=== PATIENT | female | born 1965 | race Caucasian/White ===

== ENCOUNTER 2016-10-14 08:57 | Emergency (ER) | payer SELFPAY ==
[~2016-10-14] VITALS: Ht 177.8 cm; Wt 68.0 kg
[~2016-10-14 08:57] MED LIST: DICL75 PO
[2016-10-14 08:59] VITALS: BP 119/63; PULSE 87; RESP 16; TEMP 98.9; O2SAT 98
--- NOTE | 2016-10-14 09:11 | PD ---
HPI Chief Complaint: Skin Problem Time Seen by Provider: 09:09 Travel History International Travel<30 days: No Contact w/Intl Traveler<30days: No Traveled to known affect area: No History of Present Illness HPI 51-year-old female presents the emergency department with questionable abscess on the right distal lateral dorsal forearm for the past 2 days. Patient has a history of IV drug use. Patient also complaining of burning with urination for the past several days. Patient states she's had fever although in triage her temperature is normal. She has mild pain to the right forearm cellulitic area, but no other constitutional symptoms. She has no numbness, tingling, or loss of function of the right arm. She denies any spontaneous drainage from this area. Patient has no known drug allergies. PFSH Past Medical History ?: Not Social History Alcohol Use: No Tobacco Use: Yes Substance Use: No Allergies-Medications (Allergen,Severity, Reaction): Coded Allergies: No Known Allergies (Unverified , 10/14/16) Reported Meds & Prescriptions Reported Meds & Active Scripts Active Reported Excedrin Migraine Caplet (Aspirin/Acetaminophen/Caffeine) 1 Each Tablet Methadone (Methadone HCl) 40 Mg Tab 40 Mg PO DAILY Review of Systems Except as stated in HPI: all other systems reviewed are Neg General / Constitutional: Positive: Fever Eyes: No: Visual changes HENT: No: Headaches Cardiovascular: No: Chest Pain or Discomfort Respiratory: No: Shortness of Breath Gastrointestinal: No: Abdominal Pain Genitourinary: Positive: Dysuria Musculoskeletal: No: Pain Skin: Positive Lesions, No Rash Neurologic: No: Weakness Psychiatric: No: Depression Endocrine: No: Polydipsia Hematologic/Lymphatic: No: Easy Bruising Physical Exam Narrative GENERAL: Patient appears no acute distress. SKIN: Warm and dry. Normal color. Normal turgor. Patient has a walnut-sized erythematous raised tender indurated area to the right distal dorsal lateral forearm consistent with abscess from IV drug use. There is no pointing or streaking. HEAD: Atraumatic. Normocephalic. EYES: Pupils equal and round. No scleral icterus. No injection or drainage. ENT: No nasal bleeding or discharge. Mucous membranes pink and moist. NECK: Trachea midline. Supple nontender. CARDIOVASCULAR: Regular rate and rhythm. RESPIRATORY: No accessory muscle use. Clear to auscultation. Breath sounds equal bilaterally. GASTROINTESTINAL: Abdomen soft, non-tender, nondistended. Hepatic and splenic margins not palpable. No CVA tenderness. MUSCULOSKELETAL: Extremities without clubbing, cyanosis, or edema. No obvious deformities. NEUROLOGICAL: Awake and alert. No obvious cranial nerve deficits. Motor grossly within normal limits. Five out of 5 muscle strength in the arms and legs. Normal speech. PSYCHIATRIC: Appropriate mood and affect; insight and judgment normal. Data Data Last Documented VS Vital Signs Date Time Temp Pulse Resp B/P Pulse Ox O2 Delivery O2 Flow Rate FiO2 10/14/16 08:59 98.9 87 16 119/63 98 Orders Urinalysis - C+S If Indicated (10/14/16 09:09) Lidocai-Epi 1%-1:100,000 Inj (Xylocaine- (10/14/16 09:15) Lidocai-Epi 1%-1:100,000 Inj (Xylocaine- (10/14/16 09:19) Urine Culture (10/14/16 09:22) Labs Laboratory Tests Test 10/14/16 09:22 Urine Color YELLOW Urine Turbidity HAZY Urine pH 6.5 Urine Specific [place] 1.016 Urine Protein 30 mg/dL Urine Glucose (UA) NEG mg/dL Urine Ketones NEG mg/dL Urine Occult Blood SMALL Urine Nitrite NEG Urine Bilirubin NEG Urine Urobilinogen LESS THAN 2.0 MG/DL Urine Leukocyte Esterase LARGE Urine RBC 7 /hpf Urine WBC 169 /hpf Urine WBC Clumps FEW Urine Squamous Epithelial 35 /hpf Cells Urine Bacteria FEW /hpf Urine Mucus FEW /lpf Microscopic Urinalysis Comment CULTURE INDICATED MDM Medical Decision Making Medical Screen Exam Complete: Yes Emergency Medical Condition: Yes Medical Record Reviewed: Yes Differential Diagnosis IV drug use. Urinary tract infection. Cellulitis. Abscess. MRSA. Narrative Course Patient is medically stable at time of exam. Urinalysis is collected and sent to the lab. I&D of the abscess of the right arm is performed. Wound cultures sent to the lab. Urinalysis suggestive of urinary tract infection. Patient will be treated with Bactrim DS twice a day 7 days. Patient also given Keflex 500 mg 3 times a day 7 days. Patient is to return in 2 days for a packing removal and wound check. Patient take Tylenol or ibuprofen as needed for pain. Patient is referred to Darron Tay for her drug issues. Patient can return sooner if symptoms worsen as needed. Procedures Procedure Narrative After the risks and benefits were discussed the following procedure was performed: INCISION AND DRAINAGE OF ABSCESS: The area was prepped and was sterilely draped. A subcutaneous wheal of 1% Xylocaine with epi with a total number 2 mL was used to anesthetize the area. The area was properly anesthetized. A number 11 scalpel was used to make a 1-cm incision across the area of the abscess. Cultures were obtained. The abscess was drained an irrigated with normal saline. Quarter inch iodoform packing was placed in the wound. Sterile dressing applied. Patient advised to have packing removed in two days. Diagnosis Primary Impression: Abscess Additional Impression: Urinary tract infection Qualified Code: N30.00 - Acute cystitis without hematuria Patient Instructions: Abscess Incision and Drainage (ED), Dysuria (ED), General Instructions, MRSA (Methicillin Resistant Staphylococcus Aureus) (ED), Narcotic Abuse (ED) Additional Instructions: Urinalysis suggestive of urinary tract infection. Patient will be treated with Bactrim DS twice a day 7 days. Patient also given Keflex 500 mg 3 times a day 7 days. Patient is to return in 2 days for a packing removal and wound check. Patient take Tylenol or ibuprofen as needed for pain. Patient is referred to Darron Tay for her drug issues. Patient can return sooner if symptoms worsen as needed. Med/Other Pt SpecificInfo: Prescription(s) given Disposition: 01 DISCHARGE HOME Condition: Stable Basim Stout Oct 14, 2016 09:11
[2016-10-14] MEDS ORDERED: LIDOCAINE 1%/EPINEPHrine 1:100,000 SOLN 20 ML VIAL INFIL ONE (09:15)
[2016-10-14] MEDS ORDERED: LIDOCAINE 1%/EPINEPHrine 1:100,000 SOLN 30 ML VIAL ONE (09:19)
[2016-10-14 09:48] LABS: BACTERIA, URINE FEW /hpf; BLOOD, URINE SMALL (NEG); COMMENT (UR) CULTURE INDICATED; CULTURE IF INDICATED CULTURE INDICATED; GLUCOSE,URINE NEG (NEG); KETONE, URINE NEG (NEG); MUCUS URINE FEW /lpf (OCC); NITRITE,URINE NEG (NEG); PH, URINE 6.5 (5.0-8.5); SQUAMOUS EPITHELIAL CELL URINE 35 /hpf (0-5); URINE COLOR YELLOW (YELLW/STRAW)
[2016-10-14] MEDS ORDERED: METH40TA PO (09:55)
[2016-10-14] MEDS ORDERED: EXCETAB30 (09:55)
[2016-10-14] MEDS ORDERED: CEPH500C PO (10:03)
[2016-10-14] MEDS ORDERED: BACT800T5 PO (10:03)
== END 2016-10-14 10:32 | disposition home or self-care (01) ==
LOC: NEPK 08:57
DX: L02.413 Cutaneous abscess of right upper limb (principal); N30.00 Acute cystitis without hematuria; B95.61 Methicillin susceptible Staphylococcus aureus infection as the cause of diseases classified elsewhere; B96.4 Proteus (mirabilis) (morganii) as the cause of diseases classified elsewhere; Z72.0 Tobacco use
CPT/HCPCS: 10061; 81001; 86403; 87070; 87077; 87086; 87186

== ENCOUNTER 2017-06-13 05:40 | Inpatient (IN) | payer SELFPAY ==
[~2017-06-13] VITALS: Ht 176.5 cm; Wt 83.8 kg
[~2017-06-13 05:40] MED LIST changes: +BACT800T5 PO; +CEPH500C PO; -DICL75 PO; +EXCETAB31; +METH40TA PO
[2017-06-13 05:42] VITALS: BP 132/71; PULSE 81; RESP 16; TEMP 99.4; O2SAT 98
--- NOTE | 2017-06-13 06:39 | PD ---
HPI Chief Complaint: Lump, Cyst, Hernia Time Seen by Provider: 05:58 Travel History International Travel<30 days: No Contact w/Intl Traveler<30days: No Traveled to known affect area: No History of Present Illness HPI The patient is a 52 year old female who presents to the [facility] emergency department with a history of left-sided neck swelling that she reports began 4-5 days ago. She reports that it began approximately 1-2 days after she injected cocaine in the left side of her neck. She reports that she relapsed with using IV drugs this past week. She reports that she had been clean and sober for a year prior to this. She denies having any known history of hepatitis C or HIV. She cannot recall when she was last checked for this. She reports that she has had problems with skin infections in the past related to IV drug use. She denies having any known fevers. She denies having any difficulty swallowing or shortness of breath. She reports that the swelling in the left side of her neck has increased with time. She reports that the pain has become so severe over the last 24 hours that she cannot sleep. Review of systems on review of systems, the patient denies having any cough, congestion, chest pain, shortness of breath, abdominal pain, vomiting, diarrhea, urinary symptoms, or neurologic symptoms. The patient reports having a headache. She reports having nausea without vomiting. The patient's last menstrual cycle was last week. [facility] Past Medical History Narrative Medical The patient's past medical history is significant for IV drug use, history of skin infections related to IV drug use in the past. Arthritis: Yes Migraines: Yes ?: Not Tubal Ligation: Yes Past Surgical History Narrative Surgical The patient's past surgical history is significant for bilateral tubal ligation , breast augmentation, low back surgery 3. Neurologic Surgery: Yes (Disectomy and laminectomy X3) Other Surgery: Yes (BREAST AUGMENTATION) Social History Alcohol Use: No Tobacco Use: Yes (a half a pack per day) Substance Use: Yes (Cocaine and marijuana) Allergies-Medications (Allergen,Severity, Reaction): Coded Allergies: No Known Allergies (Unverified Adverse Reaction, Unknown, 06/13/17) Reported Meds & Prescriptions Reported Meds & Active Scripts Active Review of Systems Except as stated in HPI: all other systems reviewed are Neg General / Constitutional: No: Fever Eyes: No: Visual changes HENT: Positive: Headaches, Neck Pain, No: Rhinorrhea, Congestion, Neck Stiffness Cardiovascular: No: Chest Pain or Discomfort Respiratory: No: Cough, Shortness of Breath Gastrointestinal: Positive: Nausea, No: Vomiting, Diarrhea, Abdominal Pain, Changes in Bowel Habits, Indigestion, Loss of Appetite Genitourinary: No: Dysuria Musculoskeletal: No: Pain Skin: No Rash Neurologic: No: Weakness, Focal Abnormalities, Change in Mentation, Slurred Speech, Sensory Disturbance Psychiatric: No: Depression Endocrine: No: Polydipsia Hematologic/Lymphatic: No: Easy Bruising Physical Exam Narrative General: The patient is a well-developed well-nourished female in no acute distress. Head and Neck exam: Head is normocephalic atraumatic. Eyes: EOMI, pupils are equal round and reactive to light. Nose: Midline septum with pink mucous membranes Mouth: Dentition unremarkable. Moist mucus membranes. Posterior oropharynx is not erythematous. No tonsillar hypertrophy. Uvula midline. Airway patent. Neck: No spinous process tenderness to palpation. No step-off or crepitus. No erythema or ecchymosis. No nuchal rigidity. No thyromegaly. On palpation the patient on the left side of her neck in the anterior cervical chain has a 5 x 6 cm area of induration without any focal fluctuance. No overlying erythema or edema. The patient reports that she has discomfort that radiates down into the left supraclavicular area. Cardiovascular: Regular rate and rhythm without murmurs, gallops, or rubs. Lungs: Clear to auscultation bilaterally. No wheezes, rhonchi, or rales. Abdomen: Soft, without tenderness to palpation in all 4 quadrants of the abdomen. No guarding, rebound, or rigidity. Normal bowel sounds are audible. No tenderness on palpation of McBurney's point. Extremities: No clubbing, cyanosis, or edema. 2+ pulses in all 4 extremities. No calf tenderness on palpation. Back: No costovertebral angle tenderness to palpation. Neurologic Exam: Grossly nonfocal. Skin Exam: No rash noted. Intact skin that is warm and dry. Data Data Last Documented VS Vital Signs Date Time Temp Pulse Resp B/P (MAP) Pulse Ox O2 Delivery O2 Flow Rate FiO2 06/13/17 05:42 99.4 81 16 132/71 (91) 98 Room Air Orders Orders Electrocardiogram (06/13/17 06:23) Complete Blood Count With Diff (06/13/17 06:23) Comprehensive Metabolic Panel (06/13/17:23) Prothrombin Time / Inr (Pt) (06/13/17:23) Act Partial Throm Time (Ptt) (06/13/17 06:23) Blood Culture (06/13/17:23) C-Reactive Protein (Crp) (06/13/17:23) Magnesium (Mg) (06/13/17:23) Chest, Single Ap (06/13/17:23) Ct Brain W/O Iv Contrast(Rout) (06/13/17:23) Iv Access Insert/Monitor (06/13/17:23) Ecg Monitoring (06/13/17:23) Oximetry (06/13/17:23) Ed Urine Pregnancytest Poc (06/13/17:23) Lactic Acid Sepsis Protocol (06/13/17:23) Ct Soft Tiss Neck W Iv Cont (06/13/17 06:27) MDM Medical Decision Making Medical Screen Exam Complete: Yes Emergency Medical Condition: Yes Medical Record Reviewed: Yes Differential Diagnosis Lymphadenitis, versus lymphadenopathy, versus abscess, versus myositis Narrative Course During the course of the patients emergency department visit, the patients history, examination, and differential diagnosis were reviewed with the patient. The patient was placed on a security monitor with oximetry and frequent blood pressure monitoring. The patient had IV access obtained and blood work sent for analysis. A CT scan of the head was ordered given the patient's reports of headache, CT scan of the neck with IV contrast was ordered to further evaluate the left sided neck mass. The patient was initially provided normal saline a 1 L IV fluid bolus, Zosyn, vancomycin were administered IV. Blood cultures 2 were drawn prior to antibiotic administration along with a lactic acid. The patients laboratory studies and imaging studies are pending at the conclusion of my shift. The patient's case will be checked out to the oncoming emergency physician to disposition the patient based on the conclusion of her workup. Diagnosis Primary Impression: Mass of left side of neck Additional Impression: IV drug user Ree Richardson MD Jun 13, 2017 06:39
--- NOTE | 2017-06-13 06:42 | RADRPT ---
EXAM DATE/TIME: 06/13/2017 06:31 [facility] COMPARISON: No previous studies available for comparison. INDICATIONS : Pain to left side of neck beginning this morning MEDICAL HISTORY : None. SURGICAL HISTORY : Tubal ligation. Discectomy, laminectomy, Breast Augmentation ENCOUNTER: Initial ACUITY: 1 day PAIN SCORE: 8/10 LOCATION: Bilateral chest FINDINGS: A single view of the chest demonstrates the lungs to be symmetrically aerated without evidence of mas s, infiltrate or effusion. Minimal basilar atelectasis. The cardiomediastinal contours are unremarkab le. Osseous structures are intact. CONCLUSION: 1. Minimal basilar atelectasis. No effusion or pneumothorax. Richard Fry MD on June 13, 2017 at 6:40 Board Certified Radiologist. This report was verified electronically.
[2017-06-13] MEDS ORDERED: SODIUM CHLOR 0.9% 1000 ML INJ 1,000 ML IV ONE (07:00)
[2017-06-13] MEDS ORDERED: PIPERACIL-TAZO 3.375 GM PREMIX 50 ML IV ONE (07:00)
[2017-06-13] MEDS ORDERED: VANCOMYCIN 1 GM/200 ML INJ 200 ML IV ONE (07:00)
[2017-06-13] MEDS ORDERED: MORPHINE SULFATE 4 MG/ML INJ IV PUSH ONE (08:15)
[2017-06-13 08:17] LABS: AUTOMATED NEUTROPHIL # 7.6 TH/MM3 (1.8-7.7); BASOPHIL % 0.2 % (0.0-2.0); EOSINOPHIL # 0.2 TH/MM3 (0-0.4); EOSINOPHIL % 1.8 % (0.0-4.0); HEMATOCRIT 34.4 % (35.0-46.0); HEMOGLOBIN 12.4 GM/DL (11.6-15.3); LYMPH % 16.3 % (9.0-44.0); LYMPHOCYTE # 1.7 TH/MM3 (1.0-4.8); MEAN CELL VOLUME 89.9 FL (80.0-100.0); MEAN CORPUSCULAR HEMOGLOBIN 32.4 PG (27.0-34.0); MEAN PLATELET VOLUME 7.9 FL (7.0-11.0); MONO % 7.7 % (0.0-8.0); MONOCYTE # 0.8 TH/MM3 (0-0.9); PLATELET COUNT 245 TH/MM3 (150-450); RED BLOOD COUNT 3.82 MIL/MM3 (4.00-5.30); RED CELL DISTRIBUTION WIDTH 12.7 % (11.6-17.2); WHITE BLOOD COUNT 10.3 TH/MM3 (4.0-11.0)
[2017-06-13 08:28] LABS: INTERNATIONAL NORMALIZED RATIO 1.1 RATIO; PROTHROMBIN TIME - PATIENT 10.7 SEC (9.8-11.6)
[2017-06-13 08:37] LABS: ALBUMIN 3.9 GM/DL (3.4-5.0); ALT (GPT) 27 U/L (10-53); AST (GOT) 12 U/L (15-37); BICARBONATE 25.3 MEQ/L (21.0-32.0); BLOOD UREA NITROGEN 17 MG/DL (7-18); CALCIUM 9.2 MG/DL (8.5-10.1); CHLORIDE 104 MEQ/L (98-107); GLOMERULAR FILTRATION RATE 59 ML/MIN (>89); GLUCOSE,RANDOM 83 MG/DL (74-106); MAGNESIUM 1.9 MG/DL (1.5-2.5); SODIUM (NA) 135 MEQ/L (136-145)
[2017-06-13 08:40] LABS: ALKALINE PHOSPHATASE 61 U/L (45-117); TOTAL BILIRUBIN ADULT 0.4 MG/DL (0.2-1.0); TOTAL PROTEIN 8.3 GM/DL (6.4-8.2)
[2017-06-13 08:50] VITALS: BP 126/60; PULSE 69; RESP 16; O2SAT 98
[2017-06-13] MEDS ORDERED: IOHEXOL 350 MG/ML 10 ML VIAL (for RAD DIAG) IVCONTRAST ONE (09:03)
--- NOTE | 2017-06-13 09:07 | RADRPT ---
EXAM DATE/TIME: 06/13/2017 08:56 [facility] COMPARISON: No previous studies available for comparison. INDICATIONS : Headache RADIATION DOSE: 36.65 CTDIvol (mGy) MEDICAL HISTORY : None SURGICAL HISTORY : Fusion, lumbar. ENCOUNTER: Initial ACUITY: 4 - 6 days PAIN SCALE: 6/10 LOCATION: cranial TECHNIQUE: Multiple contiguous axial images were obtained of the head. Using automated exposure control and adj ustment of the mA and/or kV according to patient size, radiation dose was kept as low as reasonably a chievable to obtain optimal diagnostic quality images. DICOM format image data is available electro nically for review and comparison. FINDINGS: CEREBRUM: The ventricles are normal for age. No evidence of midline shift, mass lesion, hemorrhage or acute in farction. No extra-axial fluid collections are seen. POSTERIOR FOSSA: The cerebellum and brainstem are intact. The 4th ventricle is midline. The cerebellopontine angle i s unremarkable. EXTRACRANIAL: The visualized portion of the orbits is intact. SKULL: The calvaria is intact. No evidence of skull fracture. CONCLUSION: No acute intracranial disease. Arjun Espinosa MD on June 13, 2017 at 9:04 Board Certified Radiologist. This report was verified electronically.
--- NOTE | 2017-06-13 09:16 | RADRPT ---
EXAM DATE/TIME: 06/13/2017 08:56 [facility] COMPARISON: No previous studies available for comparison. INDICATIONS : Left sided neck swelling IV CONTRAST: 68 cc Omnipaque 350 (iohexol) IV RADIATION DOSE: 17.35 CTDIvol (mGy) MEDICAL HISTORY : None SURGICAL HISTORY : Fusion, lumbar. ENCOUNTER: Initial ACUITY: 4 - 6 days PAIN SCALE: 5/10 LOCATION: Left neck TECHNIQUE: Volumetric scanning of the neck was performed. Using automated exposure control and adjustment of th e mA and/or kV according to patient size, radiation dose was kept as low as reasonably achievable to obtain optimal diagnostic quality images. DICOM format image data is available electronically for r eview and comparison. FINDINGS: NASOPHARYNX: The nasopharyngeal airway has a normal configuration. No mucosal thickening or mass is seen. OROPHARYNX: The intrinsic muscles of the tongue are symmetric. The tonsillar pillars are intact. The prevertebr al soft tissues are not thickened. LARYNX: The supraglottic, glottic, and infraglottic structures are intact. PARAPHARYNGEAL: The parapharyngeal space is intact. SALIVARY GLANDS: The parotid and submandibular glands are intact. LYMPH NODES: No enlarged or necrotic-appearing nodes. THYROID: Homogeneous enhancement without evidence of nodule. BONES: Unremarkable. OTHER: Soft tissue thickening and swelling of the left neck. There is engorgement of the left sternocleidoma stoid musculature. On the lateral peripheral aspect is a small area of low-density and probable small microabscess measuring 1.3 x 1.1 cm. Mucous retention cyst within the right maxillary sinus. CONCLUSION: 1. Diffuse soft tissue swelling of the left neck with engorgement of the left sternocleidomastoid mus culature. Small area of low-density along the periphery of the muscle measuring 1.1 x 1.3 cm consiste nt with microabscess. This is too small to percutaneously drain. Arjun Espinosa MD on June 13, 2017 at 9:08 Board Certified Radiologist. This report was verified electronically.
--- NOTE | 2017-06-13 09:52 | PD ---
Physical Exam Narrative Patient signed out to me by Dr. Richardson. Please see her documentation for complete details. Briefly, patient is a 52 year old female who comes in complaining of pain and swelling to the left side of her neck. She says it has been there for about 5 days, ever since she injected drugs into the area. She says it has been getting worse and more swollen. Exam shows a large, tender mass to the left side of the neck. There is no fluctuance or drainage. Data Data Last Documented VS Vital Signs Date Time Temp Pulse Resp B/P (MAP) Pulse Ox O2 Delivery O2 Flow Rate FiO2 06/13/17 08:50 69 16 126/60 (82) 98 Room Air 06/13/17 05:42 99.4 Orders Orders Electrocardiogram (06/13/17 06:23) Complete Blood Count With Diff (06/13/17 06:23) Comprehensive Metabolic Panel (06/13/17 06:23) Prothrombin Time / Inr (Pt) (06/13/17 06:23) Act Partial Throm Time (Ptt) (06/13/17 06:23) Blood Culture (06/13/17 06:23) C-Reactive Protein (Crp) (06/13/17 06:23) Magnesium (Mg) (06/13/17 06:23) Chest, Single Ap (06/13/17 06:23) Ct Brain W/O Iv Contrast(Rout) (06/13/17 06:23) Iv Access Insert/Monitor (06/13/17 06:23) Ecg Monitoring (06/13/17 06:23) Oximetry (06/13/17 06:23) Ed Urine Pregnancytest Poc (06/13/17 06:23) Lactic Acid Sepsis Protocol (06/13/17 06:23) Ct Soft Tiss Neck W Iv Cont (06/13/17 06:27) Sodium Chlor 0.9% 1000 Ml Inj (Ns 1000 M (06/13/17 07:00) Piperacil-Tazo 3.375 Gm Premix (Zosyn 3. (06/13/17 07:00) Vancomycin Inj (Vancomycin Inj) (06/13/17 07:00) Vascular Access Team Consult/P PRN (06/13/17 06:57) Vascular Poc Ultrasound (06/13/17 ) Morphine Inj (Morphine Inj) (06/13/17 08:15) Iohexol 350 Inj (Omnipaque 350 Inj) (06/13/17 09:03) Labs Laboratory Tests Test 06/13/17 08:00 White Blood Count 10.3 TH/MM3 Red Blood Count 3.82 MIL/MM3 Hemoglobin 12.4 GM/DL Hematocrit 34.4 % Mean Corpuscular Volume 89.9 FL Mean Corpuscular Hemoglobin 32.4 PG Mean Corpuscular Hemoglobin Concent 36.0 % Red Cell Distribution Width 12.7 % Platelet Count 245 TH/MM3 Mean Platelet Volume 7.9 FL Neutrophils (%) (Auto) 74.0 % Lymphocytes (%) (Auto) 16.3 % Monocytes (%) (Auto) 7.7 % Eosinophils (%) (Auto) 1.8 % Basophils (%) (Auto) 0.2 % Neutrophils # (Auto) 7.6 TH/MM3 Lymphocytes # (Auto) 1.7 TH/MM3 Monocytes # (Auto) 0.8 TH/MM3 Eosinophils # (Auto) 0.2 TH/MM3 Basophils # (Auto) 0.0 TH/MM3 CBC Comment AUTO DIFF Differential Comment AUTO DIFF CONFIRMED Prothrombin Time 10.7 SEC Prothromb Time International Ratio 1.1 RATIO Activated Partial Thromboplast Time 26.1 SEC Blood Urea Nitrogen 17 MG/DL Creatinine 1.00 MG/DL Random Glucose 83 MG/DL Total Protein 8.3 GM/DL Albumin 3.9 GM/DL Calcium Level 9.2 MG/DL Magnesium Level 1.9 MG/DL Alkaline Phosphatase 61 U/L Aspartate Amino Transf (AST/SGOT) 12 U/L Alanine Aminotransferase (ALT/SGPT) 27 U/L Total Bilirubin 0.4 MG/DL Sodium Level 135 MEQ/L Potassium Level 3.8 MEQ/L Chloride Level 104 MEQ/L Carbon Dioxide Level 25.3 MEQ/L Anion Gap 6 MEQ/L Estimat Glomerular Filtration Rate 59 ML/MIN Lactic Acid Level 0.7 mmol/L C-Reactive Protein 1.80 MG/DL [facility] Supervised Visit with GEETA: No Differential Diagnosis cellulitis vs abscess vs mass Narrative Course Patient is a 52 year old female who comes in complaining of pain and swelling to the left side of her neck. Exam shows a large tender mass. CT performed shows swelling of the sternocleidomastoid muscle and microabscess. Last [address] 06/13/17 0715 Signed Impressions: Service Date/Time: Tuesday, June 13, 2017 08:56 - CONCLUSION: 1. Diffuse soft tissue swelling of the left neck with engorgement of the left sternocleidomastoid musculature. Small area of low-density along the periphery of the muscle measuring 1.1 x 1.3 cm consistent with microabscess. This is too small to percutaneously drain. Arjun Espinosa MD Head CT 06/13/17622 Signed Impressions: Service Date/Time: Tuesday, June 13, 2017 08:56 - CONCLUSION: No acute intracranial disease. Arjun Espinosa MD Chest X-Ray 06/13/17622 Signed Impressions: Service Date/Time: Tuesday, June 13, 2017 06:31 - CONCLUSION: 1. Minimal basilar atelectasis. No effusion or pneumothorax. Richard Fry MD She was given Zosyn, Vancomycin and Morphine for pain. She will be admitted for extensive infection to her neck muscle. Diagnosis Primary Impression: Cellulitis, neck Additional Impressions: Abscess IV drug abuse Admitting Information Admitting Physician Requests: Geeta Thurman MD Jun 13, 2017 09:52
[2017-06-13] MEDS ORDERED: Vancomycin Consult Pharmacy 1 EA OTHER PRN (10:00)
[2017-06-13 11:00] VITALS: BP 113/56; PULSE 73; RESP 19; O2SAT 98
[2017-06-13] MEDS: PIPERACIL-TAZO 3.375 GM PREMIX 50 ML IV SCH ×2 (14:13→20:47)
[2017-06-13 14:56] VITALS: BP 116/66
[2017-06-13] MEDS ORDERED: NAPROXEN 500 MG TAB PO PRN (17:00)
--- NOTE | 2017-06-13 17:25 | HHI.HP ---
[facility] No Primary Care Physician Admission Diagnosis 52-year-old white female admitted for neck abscess. Diagnoses: Chief Complaint: Neck pain Travel History International Travel<30 Days: No Contact w/Intl Traveler <30 Da: No Traveled to Known Affected Are: No History of Present Illness 52-year-old white female being admitted for cellulitis and sternocleidomastoid abscess. Patient states she was in her usual state of health until about 4 days ago when she injected herself into her left neck with a dirty needle attempting to get high. Following that she began developing pain near the site of injection and this was associated with progressive swelling of the left side of her neck to the point where the pain became intolerable with a 9 out of 10. She took some ibuprofen and [place] and something from her boyfriend which she cannot specify - none of these provided any avail. She denies any nausea, vomiting, fevers, chills. No difficulty eating or voice changes. Case discussed with the emergency room physician. She reports she recently "relapsed" in terms of IV drug use due to a in the family. She says it has been many years before that when she sees IV drugs and denies ever being diagnosed with endocarditis. Review of Systems Except as stated in HPI: all other systems reviewed are Neg Past Family Social History Allergies: Coded Allergies: No Known Allergies (Unverified Allergy, Unknown, 06/13/17) Family History Patient does report her mother having some sort of neck cancer but cannot specify exactly where and what type Social History IV drug use Physical Exam Vital Signs Vital Signs Date Time Temp Pulse Resp B/P (MAP) Pulse Ox O2 Delivery O2 Flow Rate FiO2 06/13/17 14:56 74 18 116/66 (83) 97 06/13/17 11:00 73 19 113/56 (75) 98 Room Air 06/13/17 08:50 69 16 126/60 (82) 98 Room Air 06/13/17 05:42 99.4 81 16 132/71 (91) 98 Room Air Physical Exam VS: afebrile GENERAL: Lying in bed, mild distress secondary to pain, well-nourished female SKIN: Warm and dry. EYES: No scleral icterus. No injection or drainage. ENT: No nasal bleeding or discharge. Has impressive golf ball-sized edema on the left side of her neck with tenderness in that region and some erythema. The tenderness extends all the way up to the preauricular area. Patient does not demonstrate any trismus and no voice changes. CARDIOVASCULAR: Regular rate and rhythm. no murmurs RESPIRATORY: No accessory muscle use. Clear to auscultation. Breath sounds equal bilaterally. GASTROINTESTINAL: Abdomen soft, non-tender, nondistended. Extremities: No clubbing, cyanosis, or edema. No obvious deformities. MUSCULOSKELETAL: grossly intact ROM with 5/5 strength in upper and lower extremities proximally; adequate muscle bulk and tone for age and habitus NEUROLOGICAL: Awake and alert. No obvious cranial nerve deficits. No facial droop nor slurred speech noted. PSYCHIATRIC: Appropriate mood and affect; insight and judgment normal. Laboratory Laboratory Tests Test 06/13/17 08:00 White Blood Count 10.3 Red Blood Count 3.82 Hemoglobin 12.4 Hematocrit 34.4 Mean Corpuscular Volume 89.9 Mean Corpuscular Hemoglobin 32.4 Mean Corpuscular Hemoglobin Concent 36.0 Red Cell Distribution Width 12.7 Platelet Count 245 Mean Platelet Volume 7.9 Neutrophils (%) (Auto) 74.0 Lymphocytes (%) (Auto) 16.3 Monocytes (%) (Auto) 7.7 Eosinophils (%) (Auto) 1.8 Basophils (%) (Auto) 0.2 Neutrophils # (Auto) 7.6 Lymphocytes # (Auto) 1.7 Monocytes # (Auto) 0.8 Eosinophils # (Auto) 0.2 Basophils # (Auto) 0.0 CBC Comment AUTO DIFF Differential Comment AUTO DIFF CONFIRMED Prothrombin Time 10.7 Prothromb Time International Ratio 1.1 Activated Partial Thromboplast Time 26.1 Blood Urea Nitrogen 17 Creatinine 1.00 Random Glucose 83 Total Protein 8.3 Albumin 3.9 Calcium Level 9.2 Magnesium Level 1.9 Alkaline Phosphatase 61 Aspartate Amino Transf (AST/SGOT) 12 Alanine Aminotransferase (ALT/SGPT) 27 Total Bilirubin 0.4 Sodium Level 135 Potassium Level 3.8 Chloride Level 104 Carbon Dioxide Level 25.3 Anion Gap 6 Estimat Glomerular Filtration Rate 59 Lactic Acid Level 0.7 C-Reactive Protein 1.80 Date/Time Source Procedure Growth Status 06/13/17 08:00 Blood Peripheral Aerobic Blood Culture Pending Received 06/13/17 08:00 Blood Peripheral Anaerobic Blood Culture Pending Received Result Diagram: 06/13/17 0800 06/13/17 08 Imaging Last Impressions Neck CT 06/13/17626 Signed Impressions: Service Date/Time: Tuesday, June 13, 2017 08:56 - CONCLUSION: 1. Diffuse soft tissue swelling of the left neck with engorgement of the left sternocleidomastoid musculature. Small area of low-density along the periphery of the muscle measuring 1.1 x 1.3 cm consistent with microabscess. This is too small to percutaneously drain. Arjun Espinosa MD Head CT 06/13/17622 Signed Impressions: Service Date/Time: Tuesday, June 13, 2017 08:56 - CONCLUSION: No acute intracranial disease. Arjun Espinosa MD Chest X-Ray 06/13/17622 Signed Impressions: Service Date/Time: Tuesday, June 13, 2017 06:31 - CONCLUSION: 1. Minimal basilar atelectasis. No effusion or pneumothorax. Richard Fry MD Caprini VTE Risk Assessment Caprini VTE Risk Assessment: Mod/High Risk (score >= 2) Caprini Risk Assessment Model Point Value = 1 Point Value = 2 Point Value = 3 Point Value = 5 Age 41-60 Minor surgery BMI > 25 kg/m2 Swollen legs Varicose veins or History of unexplained or recurrent spontaneous Oral contraceptives or hormone replacement Sepsis (< 1 month) Serious lung disease, including pneumonia (< 1 month) Abnormal pulmonary function Acute myocardial infarction Congestive heart failure (< 1 month) History of inflammatory bowel disease Medical patient at bed rest Age 61-74 Arthroscopic surgery Major open surgery (> 45 min) Laparoscopic surgery (> 45 min) Malignancy Confined to bed (> 72 hours) Immobilizing plaster cast Central venous access Age >= 75 History of VTE Family history of VTE Factor V Leiden Prothrombin [id number] Lupus anticoagulant Anticardiolipin antibodies Elevated serum homocysteine Heparin-induced thrombocytopenia Other congenital or acquired thrombophilia Stroke (< 1 month) Elective arthroplasty Hip, pelvis, or leg fracture Acute spinal cord injury (< 1 month) Prophylaxis Regimen Total Risk Factor Score Risk Level Prophylaxis Regimen 0-1 Low Early ambulation 2 Moderate Order ONE of the following: *Sequential Compression Device (SCD) *Heparin 5000 units SQ BID 3-4 Higher Order ONE of the following medications: *Heparin 5000 units SQ TID *Enoxaparin/Lovenox 40 mg SQ daily (WT < 150 kg, CrCl > 30 mL/min) *Enoxaparin/Lovenox 30 mg SQ daily (WT < 150 kg, CrCl > 10-29 mL/min) *Enoxaparin/Lovenox 30 mg SQ BID (WT < 150 kg, CrCl > 30 mL/min) AND/OR *Sequential Compression Device (SCD) 5 or more Highest Order ONE of the following medications: *Heparin 5000 units SQ TID (Preferred with Epidurals) *Enoxaparin/Lovenox 40 mg SQ daily (WT < 150 kg, CrCl > 30 mL/min) *Enoxaparin/Lovenox 30 mg SQ daily (WT < 150 kg, CrCl > 10-29 mL/min) *Enoxaparin/Lovenox 30 mg SQ BID (WT < 150 kg, CrCl > 30 mL/min) AND *Sequential Compression Device (SCD) Assessment and Plan Assessment and Plan 52-year-old white female being admitted for cellulitis and sternocleidomastoid abscess SCM abscess - Risk inoculating infection of MRSA into the deeper soft tissues and musculature, risk of nec fasc present. Case discussed with ENT who will come see the patient. I independently reviewed the CT neck and I see substantial sternocleidomastoid swelling w/ the abscess pocket pointed out. Blood cultures have been ordered. I will start broad-spectrum antibiotics. - IVFs - IV pain med, monitor respiratory status. tobacco use - pt denying patch at this time SCDs; possible surg intervention, holding off on lovenox Physician Certification 2 Midnight Certification Type: Admission for Inpatient Services Order for Inpatient Services The services are ordered in accordance with Medicare regulations or non- Medicare payer requirements, as applicable. In the case of services not specified as inpatient-only, they are appropriately provided as inpatient services in accordance with the 2-midnight benchmark. Estimated LOS (days): 3 3 days is the estimated time the patient will need to remain in the hospital, assuming treatment plan goals are met and no additional complications. Post-Hospital Plan: Not yet determined Slim Bolden MD Jun 13, 2017 17:25
[2017-06-13 18:00] VITALS: BP 129/74; PULSE 75; RESP 14; TEMP 99.2; O2SAT 99
[2017-06-13] MEDS ORDERED: MORPHINE SULFATE 2 MG/ML INJ IV PUSH PRN (18:00)
--- NOTE | 2017-06-13 18:54 | EKG ---
Date Performed: 06/13/2017 Time Performed: 07:08:39 PTAGE: 52 years EKG: Sinus rhythm NORMAL ECG NO PREVIOUS TRACING DOCTOR: Pablo Anderson Interpretating Date/Time 06/13/2017 18:52:23
[2017-06-13 20:00] VITALS: BP 122/74; PULSE 74; RESP 18; TEMP 98.3; O2SAT 96
[2017-06-13] MEDS: ACETAMINOPHEN/HYDROcodone 325 MG/10 MG TAB PO PRN (20:48)
[2017-06-14] VITALS: BP 114/58; PULSE 66; RESP 18; TEMP 98.4; O2SAT 97
[2017-06-14] MEDS: PIPERACIL-TAZO 3.375 GM PREMIX 50 ML IV SCH ×4 (02:56→21:08)
[2017-06-14] MEDS: ACETAMINOPHEN/HYDROcodone 325 MG/10 MG TAB PO PRN ×4 (02:57→21:09)
[2017-06-14] MEDS: VANCOMYCIN INJ 1,250 MG in SODIUM CHLOR 0.9% 250 ML INJ 250 ML IV SCH ×2 (03:11→21:09)
[2017-06-14 04:00] VITALS: BP 118/62; PULSE 68; RESP 18; TEMP 98.5; O2SAT 96
[2017-06-14 08:00] VITALS: BP 121/56; PULSE 70; RESP 16; TEMP 99.2; O2SAT 96
--- NOTE | 2017-06-14 08:44 | HHI.PR ---
Subjective Remarks Pt states that pain is controlled w pain meds. admits to nausea but no vomiting. No fevers or chills at this time. Discussed w RN, pt is requesting that pain med frequency be increased to q4hrs Objective Vitals Vital Signs Date Time Temp Pulse Resp B/P (MAP) Pulse Ox O2 Delivery O2 Flow Rate FiO2 06/14/17 04:00 98.5 68 18 118/62 (80) 96 06/14/17 00:00 98.4 66 18 114/58 (76) 97 06/13/17 20:00 98.3 74 18 122/74 (90) 96 06/13/17 18:00 99.2 75 14 129/74 (92) 99 06/13/17 14:56 74 18 116/66 (83) 97 06/13/17 11:00 73 19 113/56 (75) 98 Room Air 06/13/17 08:50 69 16 126/60 (82) 98 Room Air I/O 06/13/17 06/13/17 06/13/17 06/14/17 06/14/17 06/14/17 07:00 15:00 23:00 07:00 15:00 23:00 Intake Total 1350 ml 50 ml 940 ml Balance 1350 ml 50 ml 940 ml Intake Oral 640 ml IV Total 1350 ml 50 ml 300 ml # Voids 1 3 # Bowel Movements 0 0 Result Diagram: 06/13/17 0800 06/13/17 0800 Imaging Last Impressions Neck CT 06/13/17626 Signed Impressions: Service Date/Time: Tuesday, June 13, 2017 08:56 - CONCLUSION: 1. Diffuse soft tissue swelling of the left neck with engorgement of the left sternocleidomastoid musculature. Small area of low-density along the periphery of the muscle measuring 1.1 x 1.3 cm consistent with microabscess. This is too small to percutaneously drain. Arjun Espinosa MD Head CT 06/13/17622 Signed Impressions: Service Date/Time: Tuesday, June 13, 2017 08:56 - CONCLUSION: No acute intracranial disease. Arjun Espinosa MD Chest X-Ray 06/13/17622 Signed Impressions: Service Date/Time: Tuesday, June 13, 2017 06:31 - CONCLUSION: 1. Minimal basilar atelectasis. No effusion or pneumothorax. Richard Fry MD Objective Remarks GENERAL: sitting up in bed. ENT: golf ball-sized edema on the left side of her neck with tenderness in that region and some erythema. The tenderness extends all the way up to the preauricular area. Patient does not demonstrate any voice changes. CARDIOVASCULAR: Regular rate and rhythm. no murmurs RESPIRATORY: No accessory muscle use. Clear to auscultation. Breath sounds equal bilaterally. GASTROINTESTINAL: Abdomen soft, non-tender, nondistended. Extremities: No edema. No obvious deformities. MUSCULOSKELETAL: moves all extremities NEUROLOGICAL: Awake and alert.No facial droop nor slurred speech noted. A/P Assessment and Plan 52-year-old white female being admitted for cellulitis and sternocleidomastoid abscess SCM abscess - Risk inoculating infection of MRSA into the deeper soft tissues and musculature, risk of nec fasc present. ENT consult in place. CT neck shows engorgement of the sternocleidomastoid musculature. Blood cultures pending. on IV vanc and zosyn. afebrile thus far - IVFs - IV pain med, monitor respiratory status. tobacco use - pt denying patch at this time SCDs; possible surg intervention, holding off on lovenox Discharge Planning Awaiting for ENT consult. Regina Chun MD Jun 14, 2017 08:44
[2017-06-14 12:00] VITALS: BP 118/70; PULSE 64; RESP 16; TEMP 98.8; O2SAT 98
[2017-06-14 16:00] VITALS: BP 120/71; PULSE 71; RESP 14; TEMP 97; O2SAT 99
[2017-06-14 20:00] VITALS: BP 163/80; PULSE 96; RESP 20; TEMP 96.1; O2SAT 93
[2017-06-15] VITALS: BP 120/62; PULSE 68; RESP 18; TEMP 97.4; O2SAT 99
[2017-06-15] MEDS: PIPERACIL-TAZO 3.375 GM PREMIX 50 ML IV SCH ×4 (02:31→20:39)
[2017-06-15] MEDS: ACETAMINOPHEN/HYDROcodone 325 MG/10 MG TAB PO PRN ×4 (03:35→20:39)
[2017-06-15 06:49] LABS: CREATININE 0.87 MG/DL (0.50-1.00)
--- NOTE | 2017-06-15 08:50 | HHI.PR ---
Subjective Remarks Pain still present, would like to get pain meds q4-6hr instead of q6hrs. no nausea or vomiting. no diarrhea. no cp/sob Tells me that ENT told her that they would like her to continue IV abx and if by tuesday no improvement she will need sx. Report not yet available. Objective Vitals Vital Signs Date Time Temp Pulse Resp B/P (MAP) Pulse Ox O2 Delivery O2 Flow Rate FiO2 06/15/17 00:00 97.4 68 18 120/62 (81) 99 06/14/17 20:00 96.1 96 20 163/80 (107) 93 06/14/17 16:00 97.0 71 14 120/71 (87) 99 06/14/17 12:00 98.8 64 16 118/70 (86) 98 I/O 06/14/17 06/14/17 06/14/17 06/15/17 06/15/17 06/15/17 07:00 15:00 23:00 07:00 15:00 23:00 Intake Total 940 ml 408 ml 290 ml 1020 ml Balance 940 ml 408 ml 290 ml 1020 ml Intake Oral 640 ml 358 ml 240 ml 720 ml IV Total 300 ml 50 ml 50 ml 300 ml # Voids 3 6 3 # Bowel Movements 0 1 0 Result Diagram: 06/13/17 0800 06/15/17 0450 Imaging Last Impressions Neck CT 06/13/17626 Signed Impressions: Service Date/Time: Tuesday, June 13, 2017 08:56 - CONCLUSION: 1. Diffuse soft tissue swelling of the left neck with engorgement of the left sternocleidomastoid musculature. Small area of low-density along the periphery of the muscle measuring 1.1 x 1.3 cm consistent with microabscess. This is too small to percutaneously drain. Arjun Espinosa MD Head CT 06/13/17622 Signed Impressions: Service Date/Time: Tuesday, June 13, 2017 08:56 - CONCLUSION: No acute intracranial disease. Arjun Espinosa MD Chest X-Ray 06/13/17622 Signed Impressions: Service Date/Time: Tuesday, June 13, 2017 06:31 - CONCLUSION: 1. Minimal basilar atelectasis. No effusion or pneumothorax. Richard Fry MD Objective Remarks GENERAL: sitting up in bed. ENT: golf ball-sized edema on the left side of her neck with tenderness in that region and erythema seems to have diminished. The tenderness extends all the way up to the preauricular area. Patient does not demonstrate any voice changes. CARDIOVASCULAR: Regular rate and rhythm. no murmurs RESPIRATORY: No accessory muscle use. Clear to auscultation. Breath sounds equal bilaterally. GASTROINTESTINAL: Abdomen soft, non-tender, nondistended. Extremities: No edema. No obvious deformities. MUSCULOSKELETAL: moves all extremities NEUROLOGICAL: Awake and alert.No facial droop nor slurred speech noted. A/P Assessment and Plan 52-year-old white female being admitted for cellulitis and sternocleidomastoid abscess SCM abscess - Risk inoculating infection of MRSA into the deeper soft tissues and musculature. ENT consult in place. Official report not yet available. CT neck shows engorgement of the sternocleidomastoid musculature. Blood cultures so far neg x 1 day. on IV vanc and zosyn. afebrile thus far - IVFs - continue pain meds. switch norco to q4hrs as needed as pt is very tender tobacco use - pt denying patch at this time SCDs; possible surg intervention, holding off on lovenox Discharge Planning continue IV abx for now. Awaiting report from ENT. Per pt, possible surgical intervention on tuesday Regina Chun MD Jun 15, 2017 08:50
[2017-06-15 10:10] VITALS: BP 107/59; PULSE 68; RESP 14; TEMP 97; O2SAT 100
[2017-06-15 12:00] VITALS: BP 125/67; PULSE 73; RESP 14; TEMP 97.2; O2SAT 100
[2017-06-15] MEDS: VANCOMYCIN INJ 1,250 MG in SODIUM CHLOR 0.9% 250 ML INJ 250 ML IV SCH (14:15)
[2017-06-15 16:00] VITALS: BP 124/76; PULSE 62; RESP 14; TEMP 97.7; O2SAT 100
[2017-06-15 20:00] VITALS: BP 118/86; PULSE 69; RESP 20; TEMP 98.3; O2SAT 100
[2017-06-16] VITALS: BP 122/79; PULSE 61; RESP 20; TEMP 98.1; O2SAT 97
[2017-06-16] MEDS: PIPERACIL-TAZO 3.375 GM PREMIX 50 ML IV SCH ×3 (02:26→14:00)
[2017-06-16] MEDS: ACETAMINOPHEN/HYDROcodone 325 MG/10 MG TAB PO PRN ×3 (02:29→11:16)
[2017-06-16 04:37] VITALS: RESP 20
[2017-06-16 06:46] LABS: BICARBONATE 23.4 MEQ/L (21.0-32.0); CALCIUM 8.6 MG/DL (8.5-10.1)
[2017-06-16 06:50] LABS: CREATININE 0.86 MG/DL (0.50-1.00)
[2017-06-16] MEDS ORDERED: PHARMACY ORDERED LAB ONE (07:45)
[2017-06-16 08:00] VITALS: BP 115/58; PULSE 57; RESP 16; TEMP 97.1; O2SAT 97
[2017-06-16] MEDS: VANCOMYCIN INJ 1,250 MG in SODIUM CHLOR 0.9% 250 ML INJ 250 ML IV SCH (08:57)
[2017-06-16 12:00] VITALS: BP 121/82; PULSE 65; RESP 16; TEMP 97.9; O2SAT 100
[2017-06-16 12:17] VITALS: RESP 18
--- NOTE | 2017-06-16 13:20 | HHI.PR ---
Subjective Remarks Patient examined today for follow-up on left neck abscess from IV drug abuse. Patient is sitting in bed quite comfortable. Denies any worsening pain. Discussed with her plan for care with awaiting ENT recommendations for possible surgical incision and drainage. Patient remained stable, afebrile. Objective Vital Signs Date Time Temp Pulse Resp B/P (MAP) Pulse Ox O2 Delivery O2 Flow Rate FiO2 06/16/17 12:17 18 06/16/17 12:00 97.9 65 16 121/82 (95) 100 06/16/17 08:00 97.1 57 16 115/58 (77) 97 06/16/17 04:37 20 06/16/17 00:00 98.1 61 20 122/79 (93) 97 06/15/17 20:00 98.3 69 20 118/86 (97) 100 06/15/17 16:00 97.7 62 14 124/76 (92) 100 I/O 06/15/17 06/15/17 06/15/17 06/16/17 06/16/17 06/16/17 07:00 15:00 23:00 07:00 15:00 23:00 Intake Total 1020 ml 480 ml 470 ml 290 ml Balance 1020 ml 480 ml 470 ml 290 ml Intake Oral 720 ml 480 ml 420 ml 240 ml IV Total 300 ml 50 ml 50 ml # Voids 3 6 3 # Bowel Movements 0 1 0 Result Diagram: 06/13/17 0800 06/16/17 0510 Imaging Last Impressions Neck CT 06/13/17626 Signed Impressions: Service Date/Time: Tuesday, June 13, 2017 08:56 - CONCLUSION: 1. Diffuse soft tissue swelling of the left neck with engorgement of the left sternocleidomastoid musculature. Small area of low-density along the periphery of the muscle measuring 1.1 x 1.3 cm consistent with microabscess. This is too small to percutaneously drain. Arjun Espinosa MD Head CT 06/13/17622 Signed Impressions: Service Date/Time: Tuesday, June 13, 2017 08:56 - CONCLUSION: No acute intracranial disease. Arjun Espinosa MD Chest X-Ray 06/13/17622 Signed Impressions: Service Date/Time: Tuesday, June 13, 2017 06:31 - CONCLUSION: 1. Minimal basilar atelectasis. No effusion or pneumothorax. Richard Fry MD Objective Remarks GENERAL: Well-developed, well-nourished, in no acute distress. alert and orientated HEENT: Head is normocephalic without any lesions or masses noted. Facial features are symmetric. Eyes: extraocular muscles are intact. Conjunctivae were clear. NECK: Supple without any masses. Trachea midline no deviation. No JVD, patient still has significant granulated area noted over the mid left sternoclavicular muscle CARDIAC: Regular rhythm, regular rate. S1/S2 are heard. No murmurs gallops or rubs. LUNGS: Clear to auscultation bilaterally. No wheeze, rhonchi or rales. No use of accessory muscles on inspiration or expiration. ABDOMEN: Soft, nontender. Nondistended. Bowel sounds heard in all 4 quadrants. No organomegaly or masses. Negative rebound, negative guarding EXTREMITIES: No edema, pulses are equal bilaterally. No cyanosis or clubbing NEUROLOGY: Mood and affect appear appropriate. Cranial nerves II through XII grossly intact. Moving all extremities, speech is clear A/P Assessment and Plan 52-year-old female who was admitted for cellulitis and abscess of the sternocleidomastoid abscess Sternocleidomastoid abscess, without any signs of sepsis Risk concerning for MRSA secondary to IV drug use ENT physician evaluated patient and recommended 48-72 hours of IV antibiotic and reevaluation to see if surgical intervention is necessary, awaiting reevaluation Blood cultures have remained negative for 3 days, patient remains afebrile Pain control with [place] IV drug use patient counseled on cessation Tobacco use Patient counseled on cessation DVT prevention sequential compression devices, avoid chemical prophylaxis secondary to possible surgical intervention Discharge Planning Discharge planning once cleared by ENT Vinayak Crystal Jun 16, 2017 13:20
[2017-06-16] MEDS ORDERED: BACT800T5 PO (15:07)
[2017-06-16] MEDS ORDERED: CLIN150C14 PO (15:07)
--- NOTE | 2017-06-16 15:08 | HHI.DCPOC ---
Discharge Care Plan Diagnosis: (1) Cellulitis, neck (2) IV drug user Goals to Promote Your Health * To prevent worsening of your condition and complications * To maintain your health at the optimal level Directions to Meet Your Goals Take your medications as prescribed Follow your dietary instruction Follow activity as directed Keep your appointments as scheduled Take your immunizations and boosters as scheduled If your symptoms worsen call your PCP, if no PCP go to Urgent Care Center or Emergency Room Smoking is Dangerous to Your Health. Avoid second hand smoke Call the 24-hour hour crisis hotline for domestic abuse at Vinayak Crystal Jun 16, 2017 15:08
--- NOTE | 2017-06-16 15:14 | HHI.DS ---
Discharge Summary Admission Date Jun 14, 2017 at 10:39 Discharge Date: Jun 16, 2017 Admitting Diagnosis 52-year-old white female admitted for neck abscess. (1) Cellulitis, neck ICD Code: L03.221 - Cellulitis of neck Status: Acute (2) IV drug user ICD Code: F19.90 - Other psychoactive substance use, unspecified, uncomplicated Status: Acute Procedures None Brief History - From Admission 52-year-old white female being admitted for cellulitis and sternocleidomastoid abscess. Patient states she was in her usual state of health until about 4 days ago when she injected herself into her left neck with a dirty needle attempting to get high. Following that she began developing pain near the site of injection and this was associated with progressive swelling of the left side of her neck to the point where the pain became intolerable with a 9 out of 10. She took some ibuprofen and [place] and something from her boyfriend which she cannot specify - none of these provided any avail. She denies any nausea, vomiting, fevers, chills. No difficulty eating or voice changes. Case discussed with the emergency room physician. She reports she recently "relapsed" in terms of IV drug use due to a in the family. She says it has been many years before that when she sees IV drugs and denies ever being diagnosed with endocarditis. CBC/BMP: 06/13/17 0800 06/16/17 0510 Significant Findings Laboratory Tests Test 06/15/17 04:50 06/16/17 05:10 Estimat Glomerular Filtration Rate 69 ML/MIN (>89) 70 ML/MIN (>89) Chloride Level 108 MEQ/L (98-107) Imaging Last Impressions Neck CT 06/13/17 0648 Signed Impressions: Service Date/Time: Tuesday, June 13, 2017 08:56 - CONCLUSION: 1. Diffuse soft tissue swelling of the left neck with engorgement of the left sternocleidomastoid musculature. Small area of low-density along the periphery of the muscle measuring 1.1 x 1.3 cm consistent with microabscess. This is too small to percutaneously drain. Arjun F. Tocci, MD Head CT 06/13/17622 Signed Impressions: Service Date/Time: Tuesday, June 13, 2017 08:56 - CONCLUSION: No acute intracranial disease. Arjun Espinosa MD Chest X-Ray 06/13/17622 Signed Impressions: Service Date/Time: Tuesday, June 13, 2017 06:31 - CONCLUSION: 1. Minimal basilar atelectasis. No effusion or pneumothorax. Richard Fry MD PE at Discharge GENERAL: sitting up in bed. ENT: golf ball-sized edema on the left side of her neck with tenderness in that region and erythema seems to have diminished. The tenderness extends all the way up to the preauricular area. Patient does not demonstrate any voice changes. CARDIOVASCULAR: Regular rate and rhythm. no murmurs RESPIRATORY: No accessory muscle use. Clear to auscultation. Breath sounds equal bilaterally. GASTROINTESTINAL: Abdomen soft, non-tender, nondistended. Extremities: No edema. No obvious deformities. MUSCULOSKELETAL: moves all extremities NEUROLOGICAL: Awake and alert.No facial droop nor slurred speech noted. Hospital Course 52-year-old female with known history of IV drug use who actually using and injected into the left side of her neck developed pain and inflammation in the area of injection present in 4 days prior to preventing to the hospital. Patient had workup done emergency department and there is no indication of any fever, leukocytosis, tachycardia, any signs of sepsis. CT scan was done of the neck which did show engorgement of the left sternocleidomastoid musculature. Small area of low density along the periphery measuring 1.1 x 1.3 cm consistent with a microabscess. Patient was admitted the hospital with empirical antibiotics to include vancomycin, Zosyn. ENT, Dr. Elam, evaluated patient and at the time there is no indication for any surgical intervention with grossly cellulitis, inflammation. Is recommended patient maintain on IV antibiotics for 48-72 hours and reevaluate. There is been no significant clinical worsening. The area still does have some mild erythema, edema. There is no fluctuance noted on palpation. No obvious need for incision and drainage at this time. This was discussed with the ENT physician. Indicates patient can maintain on by mouth antibiotics and follow- up in his office in 2 days for follow-up. Patient did have workup performed with blood cultures which have remained negative during her stay in the hospital. Patient never developed any fever. Patient clinically stable and improving at this time. Will discharge patient home on by mouth antibiotics with outpatient follow-up with the ENT. Patient notified if she develops any worsening she should return the hospital for further evaluation and management. Pt Condition on Discharge: Stable Discharge Disposition: Discharge Home Discharge Time: > 30 minutes Discharge Instructions DIET: Follow Instructions for: As Tolerated, No Restrictions Activities you can perform: Regular-No Restrictions Activities to Avoid: Driving for 24 hrs Follow up Referrals: Ear Nose Throat - 2-[address] Elam PCP Follow-up - 1 Week New Medications: Clindamycin (Clindamycin) 150 Mg Cap 450 MG PO Q6H for Infection for 10 Days, #120 CAP 0 Refills Sulfamethoxazole-Trimethoprim (Bactrim DS) 800-160 Mg Tab 1 TAB PO BID for Infection, #20 TAB 0 Refills Vinayak Crystal Jun 16, 2017 15:14
[2017-06-16] MEDS ORDERED: VANCOMYCIN INJ 1,250 MG in SODIUM CHLOR 0.9% 250 ML INJ 250 ML IV SCH (18:00)
[2017-06-18] MEDS ORDERED: PHARMACY ORDERED LAB ONE (05:45)
== END 2017-06-16 16:10 | disposition home or self-care (01) | DRG 558 ==
LOC: NEPC 05:40 → NEDA 09:55 → PH3A 15:52 → OBSVTOIN 06-14 10:39
PROVIDERS: ADMIT Hospitalist; ATTEND Hospitalist
DX: M60.08 Infective myositis, other site (principal); L03.221 Cellulitis of neck; F19.10 Other psychoactive substance abuse, uncomplicated; Z72.0 Tobacco use
CPT/HCPCS: 70450; 70491; 71045; 80048; 80053; 80202; 82565; 83605; 83735; 84703; 85025; 85610; 85730; 86140; 87040; 93005; 96365; 96366; 96368; 96375; 96376; G0378; J2270; J2543; J3370; J7030; J7050; Q9967

== ENCOUNTER 2017-08-11 03:49 | Inpatient (IN) | payer SELFPAY ==
[~2017-08-11] VITALS: Ht 175.3 cm; Wt 81.7 kg
[2017-08-11] VITALS (7 sets, daily range): BP systolic 133–177; BP diastolic 67–92; PULSE 58–96; RESP 15–17; TEMP 98.1–99.2; O2SAT 97–100
[~2017-08-11 03:49] MED LIST changes: -CEPH500C PO; +CLIN150C14 PO; -EXCETAB31; -METH40TA PO
[2017-08-11] MEDS ORDERED: SODIUM CHLOR 0.9% 1000 ML INJ 1,000 ML IV ONE (07:30)
[2017-08-11] MEDS ORDERED: VANCOMYCIN INJ 1,000 MG in SODIUM CHLOR 0.9% 250 ML INJ 250 ML IV STA (07:35)
[2017-08-11] MEDS ORDERED: PIPERACIL-TAZO 4.5 GM PREMIX 100 ML IV STA (07:35)
--- NOTE | 2017-08-11 07:52 | RADRPT ---
EXAM DATE/TIME: 08/11/2017 07:41 [facility] COMPARISON: CHEST SINGLE AP, June 13, 2017, 6:31. INDICATIONS : Lump on left neck. MEDICAL HISTORY : Arthritis. SURGICAL HISTORY : Tubal ligation. Laminectomy. Breast augmentation. ENCOUNTER: Initial ACUITY: 1 day PAIN SCORE: 0/10 LOCATION: Bilateral chest FINDINGS: A single view of the chest demonstrates the lungs to be symmetrically aerated without evidence of mas s, infiltrate or effusion. The cardiomediastinal contours are unremarkable. Osseous structures are intact. CONCLUSION: No acute disease. Rock Aaron MD on August 11, 2017 at 7:50 Board Certified Radiologist. This report was verified electronically.
--- NOTE | 2017-08-11 08:09 | PD ---
HPI Chief Complaint: Skin Problem Time Seen by Provider: 07:30 Travel History International Travel<30 days: No Contact w/Intl Traveler<30days: No Traveled to known affect area: No History of Present Illness HPI 52 y/o female presents with swelling to her left neck and difficulty swallowing that restarted over the past couple of days. She states she was discharged from the hospital at the end of June and she only took about half the course of her antibiotics. She states she did not follow up with anyone. She denies injecting in that area or anywhere else since being in the hospital. Quality is swollen. Severity is progressive. Duration is 2 days. Patient denies specific modifying factors other than with swallowing. She states the antibiotic she was supposed to be on with clindamycin. PFSH Past Medical History Arthritis: Yes Blood Disorders: No Cancer: No Cardiovascular Problems: No Diminished Hearing: No Endocrine: No Genitourinary: No Musculoskeletal: Yes (3 back surgerys ) Neurologic: No Psychiatric: No Respiratory: No Migraines: Yes Tetanus Vaccination: Unknown Influenza Vaccination: No ?: Not LMP: menapause Tubal Ligation: Yes Past Surgical History Neurologic Surgery: Yes (Disectomy and laminectomy X3) Other Surgery: Yes (BREAST AUGMENTATION) Social History Alcohol Use: Yes (daily) Tobacco Use: Yes (a half a pack per day) Substance Use: Yes (Cocaine and marijuana) Allergies-Medications (Allergen,Severity, Reaction): Coded Allergies: No Known Allergies (Unverified Allergy, Unknown, 08/11/17) Reported Meds & Prescriptions Reported Meds & Active Scripts Active Review of Systems Except as stated in HPI: all other systems reviewed are Neg Physical Exam Narrative GENERAL: 52-year-old female in no apparent distress SKIN: To left mid lateral neck there is a large area of swelling that is indurated and has overlying erythema and warmth with abscess-like appearance that does not cross into the midline or back of neck HEAD: Atraumatic. Normocephalic. EYES: Pupils equal and round. No scleral icterus. No injection or drainage. ENT: No nasal bleeding or discharge. Mucous membranes pink and moist. NECK: Trachea midline. No JVD. CARDIOVASCULAR: Regular rate and rhythm. RESPIRATORY: No accessory muscle use. Clear to auscultation. Breath sounds equal bilaterally. GASTROINTESTINAL: Abdomen soft, non-tender, nondistended. MUSCULOSKELETAL: No obvious deformities. No clubbing. No cyanosis. No edema. NEUROLOGICAL: Awake and alert. Motor grossly within normal limits. Normal speech. Data Data Last Documented VS Vital Signs Date Time Temp Pulse Resp B/P (MAP) Pulse Ox O2 Delivery O2 Flow Rate FiO2 08/11/17 11:06 72 16 133/78 (96) 99 Room Air 08/11/17 07:15 99.2 Orders Orders Complete Blood Count With Diff (08/11/17 07:28) Comprehensive Metabolic Panel (08/11/17 07:28) Prothrombin Time / Inr (Pt) (08/11/17 07:28) Act Partial Throm Time (Ptt) (08/11/17 07:28) Lactic Acid Sepsis Protocol (08/11/17 07:28) Magnesium (Mg) (08/11/17 07:28) Urinalysis - C+S If Indicated (08/11/17 07:28) Blood Culture (08/11/17 07:28) Chest, Single Ap (08/11/17 07:28) Ecg Monitoring (08/11/17 07:28) Iv Access Insert/Monitor (08/11/17 07:28) Oximetry (08/11/17 07:28) Ct Soft Tiss Neck W Iv Cont (08/11/17 ) Sodium Chlor 0.9% 1000 Ml Inj (Ns 1000 M (08/11/17 07:30) Drug Screen, Random Urine (08/11/17 07:28) Piperacil-Tazo 4.5 Gm Premix (Zosyn 4.5 (08/11/17 07:35) Vancomycin Inj (Vancomycin Inj) (08/11/17 07:35) Urine Culture (08/11/17 08:13) Iohexol 350 Inj (Omnipaque 350 Inj) (08/11/17 10:49) Admit Order (Ed Use Only) (08/11/17 11:55) Labs Laboratory Tests Test 08/11/17 07:55 08/11/17 08:00 08/11/17 08:13 08/11/17 09:45 White Blood Count 7.0 TH/MM3 Red Blood Count 4.06 MIL/MM3 Hemoglobin 12.1 GM/DL Hematocrit 36.3 % Mean Corpuscular Volume 89.5 FL Mean Corpuscular Hemoglobin 29.7 PG Mean Corpuscular Hemoglobin Concent 33.2 % Red Cell Distribution Width 14.4 % Platelet Count 207 TH/MM3 Mean Platelet Volume 8.7 FL Neutrophils (%) (Auto) 71.1 % Lymphocytes (%) (Auto) 19.2 % Monocytes (%) (Auto) 8.3 % Eosinophils (%) (Auto) 0.6 % Basophils (%) (Auto) 0.8 % Neutrophils # (Auto) 4.9 TH/MM3 Lymphocytes # (Auto) 1.3 TH/MM3 Monocytes # (Auto) 0.6 TH/MM3 Eosinophils # (Auto) 0.0 TH/MM3 Basophils # (Auto) 0.1 TH/MM3 CBC Comment DIFF FINAL Differential Comment Prothrombin Time 10.5 SEC Prothromb Time International Ratio 1.0 RATIO Activated Partial Thromboplast Time 25.2 SEC Lactic Acid Level 1.2 mmol/L Urine Color YELLOW Urine Turbidity HAZY Urine pH 7.0 Urine Specific [place] 1.022 Urine Protein 30 mg/dL Urine Glucose (UA) NEG mg/dL Urine Ketones TRACE mg/dL Urine Occult Blood NEG Urine Nitrite NEG Urine Bilirubin NEG Urine Urobilinogen 2.0 MG/DL Urine Leukocyte Esterase SMALL Urine RBC 1 /hpf Urine WBC 2 /hpf Urine Squamous Epithelial Cells 31 /hpf Urine Transitional Epithelial Cells <1 /hpf Urine Bacteria RARE /hpf Urine Mucus FEW /lpf Microscopic Urinalysis Comment CATH-CULTURE IND Urine Opiates Screen NEG Urine Barbiturates Screen NEG Urine Amphetamines Screen NEG Urine Benzodiazepines Screen NEG Urine Cocaine Screen NEG Urine Cannabinoids Screen NEG Blood Urea Nitrogen 13 MG/DL Creatinine 0.98 MG/DL Random Glucose 130 MG/DL Total Protein 8.5 GM/DL Albumin 3.9 GM/DL Calcium Level 9.3 MG/DL Magnesium Level 1.7 MG/DL Alkaline Phosphatase 88 U/L Aspartate Amino Transf (AST/SGOT) 46 U/L Alanine Aminotransferase (ALT/SGPT) 83 U/L Total Bilirubin 0.5 MG/DL Sodium Level 140 MEQ/L Potassium Level 3.4 MEQ/L Chloride Level 105 MEQ/L Carbon Dioxide Level 26.9 MEQ/L Anion Gap 8 MEQ/L Estimat Glomerular Filtration Rate 60 ML/MIN MDM Medical Decision Making Medical Screen Exam Complete: Yes Emergency Medical Condition: Yes Medical Record Reviewed: Yes (Past history confirmed) Interpretation(s) CBC & BMP Diagram 08/11/17 07:55 08/11/17 09:45 Total Protein 8.5 H, Albumin 3.9, Calcium Level 9.3, Magnesium Level 1.7, Alkaline Phosphatase 88, Aspartate Amino Transf (AST/SGOT) 46 H, Alanine Aminotransferase (ALT/SGPT) 83 H, Total Bilirubin 0.5 Last 24 hours Impressions Chest X-Ray 08/11/17 0728 Signed Impressions: Service Date/Time: July 07:41 - CONCLUSION: No acute disease. Rock Aaron MD Neck CT 08/11/17 0000 Signed Impressions: Service Date/Time: July 10:43 - CONCLUSION: Superficial cellulitic and deep soft tissue process in the left neck which is presumably inflammatory as described in detail above. Raf Shi MD Differential Diagnosis Abscess, cellulitis, sepsis, endocarditis Narrative Course Will check blood work, CT imaging and dose with broad-spectrum antibiotic coverage and reevaluate CT shows more cellulitic component with a small possible fluid collection. She will be admitted for continued IV antibiotic therapy and continued care, if does not improve she may need incision and drainage Physician Communication Physician Communication dr gtz agrees to admission Diagnosis Primary Impression: Cellulitis of neck Additional Impression: IVDU (intravenous drug user) Admitting Information Admitting Physician Requests: Admit Anabel Marvin MD Aug 11, 2017 08:09
[2017-08-11 08:13] LABS: AUTOMATED NEUTROPHIL # 4.9 TH/MM3 (1.8-7.7); BASOPHIL # 0.1 TH/MM3 (0-0.2); BASOPHIL % 0.8 % (0.0-2.0); EOSINOPHIL % 0.6 % (0.0-4.0); HEMATOCRIT 36.3 % (35.0-46.0); HEMOGLOBIN 12.1 GM/DL (11.6-15.3); LYMPH % 19.2 % (9.0-44.0); LYMPHOCYTE # 1.3 TH/MM3 (1.0-4.8); MEAN CELL VOLUME 89.5 FL (80.0-100.0); MEAN CORPUSCULAR HEMOGLOBIN 29.7 PG (27.0-34.0); MEAN CORPUSCULAR HGB CONC 33.2 % (32.0-36.0); MEAN PLATELET VOLUME 8.7 FL (7.0-11.0); MONO % 8.3 % (0.0-8.0); MONOCYTE # 0.6 TH/MM3 (0-0.9); NEUT % 71.1 % (16.0-70.0); PLATELET COUNT 207 TH/MM3 (150-450); RED BLOOD COUNT 4.06 MIL/MM3 (4.00-5.30); RED CELL DISTRIBUTION WIDTH 14.4 % (11.6-17.2)
[2017-08-11 08:19] LABS: PROTHROMBIN TIME - PATIENT 10.5 SEC (9.8-11.6)
[2017-08-11 08:46] LABS: BACTERIA, URINE RARE /hpf; BILIRUBIN, URINE NEG (NEG); BLOOD, URINE NEG (NEG); GLUCOSE,URINE NEG (NEG); KETONE, URINE TRACE mg/dL (NEG); MUCUS URINE FEW /lpf (OCC); NITRITE,URINE NEG (NEG); SQUAMOUS EPITHELIAL CELL URINE 31 /hpf (0-5); TRANSITIONAL EPI CELLS, URINE <1 /hpf; URINE COLOR YELLOW (YELLW/STRAW); URINE LEUKOCYTE ESTERASE SMALL (NEG)
[2017-08-11 10:32] LABS: ALBUMIN 3.9 GM/DL (3.4-5.0); AST (GOT) 46 U/L (15-37); BICARBONATE 26.9 MEQ/L (21.0-32.0); BLOOD UREA NITROGEN 13 MG/DL (7-18); CALCIUM 9.3 MG/DL (8.5-10.1); CHLORIDE 105 MEQ/L (98-107); CREATININE 0.98 MG/DL (0.50-1.00); GLOMERULAR FILTRATION RATE 60 ML/MIN (>89); GLUCOSE,RANDOM 130 MG/DL (74-106); MAGNESIUM 1.7 MG/DL (1.5-2.5); SODIUM (NA) 140 MEQ/L (136-145)
[2017-08-11 10:33] LABS: ALT (GPT) 83 U/L (10-53)
[2017-08-11 10:35] LABS: ALKALINE PHOSPHATASE 88 U/L (45-117); TOTAL BILIRUBIN ADULT 0.5 MG/DL (0.2-1.0); TOTAL PROTEIN 8.5 GM/DL (6.4-8.2)
[2017-08-11] MEDS ORDERED: IOHEXOL 350 MG/ML 10 ML VIAL (for RAD DIAG) IVCONTRAST ONE (10:49)
--- NOTE | 2017-08-11 11:14 | RADRPT ---
EXAM DATE/TIME: 08/11/2017 10:43 [facility] COMPARISON: No previous studies available for comparison. INDICATIONS : Left sided lump on neck. IV CONTRAST: 64 cc Omnipaque 350 (iohexol) IV RADIATION DOSE: 15.85 CTDIvol (mGy) MEDICAL HISTORY : None SURGICAL HISTORY : None. ENCOUNTER: Initial ACUITY: 1 day PAIN SCALE: 5/10 LOCATION: Left flank TECHNIQUE: Volumetric scanning of the neck was performed. Using automated exposure control and adjustment of th e mA and/or kV according to patient size, radiation dose was kept as low as reasonably achievable to obtain optimal diagnostic quality images. DICOM format image data is available electronically for r eview and comparison. FINDINGS: In the lateral left neck, there is moderate skin thickening and subcutaneous soft tissue induration s uperficial to a small area of heterogeneous density in the tissues along the surface of the left ster nocleidomastoid muscle. There is thickening of the overlying platysma and fascial planes. A slightly less than 1 cm central low density area may be a small phlegmonous fluid collection. This is felt mos t probably to represent an inflammatory focus of some type. Elsewhere in the neck, there is mild edema extending into the subcutaneous tissues of the left suprac lavicular region. Minimal similar change extending cephalad toward the region of the parotid gland. T here is no evidence of adenopathy. The visualized brain and orbitofacial structures are otherwise unremarkable. Mild polypoid disease in the right maxillary sinus. There are no abnormalities of the upper aerodigestive tract. The thyroid is benign for CT appearance. The visualized upper medius and lung apices are clear. CONCLUSION: Superficial cellulitic and deep soft tissue process in the left neck which is presumably inflammatory as described in detail above. Raf Shi MD on August 11, 2017 at 11:03 Board Certified Radiologist. This report was verified electronically.
[2017-08-11] MEDS ORDERED: ACETAMINOPHEN 325 MG TAB PO PRN (12:15)
[2017-08-11] MEDS ORDERED: Vancomycin Consult Pharmacy 1 EA OTHER SCH (12:15)
--- NOTE | 2017-08-11 12:25 | HHI.HP ---
[facility] Service [facility] Primary Care Physician No Primary Care Physician Admission Diagnosis Left neck cellulitis Diagnoses: (1) Cellulitis of neck Diagnosis: Principal Chief Complaint: infection of the left neck Travel History International Travel<30 Days: No Contact w/Intl Traveler <30 Da: No Traveled to Known Affected Are: No History of Present Illness patient is a 52 y/o female- with history of IVDA, was recently admitted and treated for left neck infection, presented back to ER with worsening pain, swelling and redness of the left neck. last admission she was evaluated by ENT and discharged with po Clindamycin although she says that she didn't finish the course of antibiotic. she says that two days ago she started to have fever and chills. and then she noticed the left neck looked more swollen and red. the area is more painful. this made her to come back to ER. she says that the last time that she had an IV drug injection was about a month ago. Review of Systems Constitutional: COMPLAINS OF: Fever, Chills, DENIES: Weight loss, Night Sweats Eyes: DENIES: Blurred vision, Diplopia, Vision loss, Double Vision Ears, nose, mouth, throat: DENIES: Tinnitus, Vertigo, Throat pain, Epistaxis Respiratory: DENIES: Apneas, Cough, Snoring, Wheezing, Hemoptysis, Sputum production, Shortness of breath Cardiovascular: DENIES: Chest pain, Palpitations, Syncope, Dyspnea on Exertion , PND, Lower Extremity Edema, Orthopnea, Claudication Gastrointestinal: DENIES: Abdominal pain, Black stools, Bloody stools, Constipation, Diarrhea, Nausea, Vomiting, Difficulty Swallowing, Anorexia Genitourinary: DENIES: Urinary frequency, Urgency, Hematuria, Dysuria Musculoskeletal: COMPLAINS OF: Muscle aches (left neck.), DENIES: Joint pain, Stiffness, Joint Swelling Integumentary: DENIES: Rash Neurologic: DENIES: Abnormal gait, Headache, Localized weakness, Paresthesias, Seizures, Speech Problems, Tremor, Poor Balance Psychiatric: DENIES: Anxiety, Confusion, Mood changes, Depression, Hallucinations, Agitation, Suicidal Ideation, Homicidal Ideation, Delusions Past Family Social History Past Medical History none reported - of note recently treated for left neck cellulitis. Past Surgical History discectomy/ breast augmentation. Reported Medications none. Allergies: Coded Allergies: No Known Allergies (Unverified Allergy, Unknown, 08/11/17) Active Ordered Medications Inpatient Medications Piperacillin Sod/ Tazobactam Sod 100 ml @ 200 mls/hr ONCE STAT IV Last administered on 08/11/17at 08:12; Start 08/11/17 at 07:35; Stop 08/11/17 at 08:04 ; Status DC Sodium Chloride 1,000 ml @ 999 mls/hr BOLUS ONCE IV Last administered on 08/11at 08:12; Start 08/11/17 at 07:30; Stop 08/11/17 at 08:30; Status DC Vancomycin HCl 1000 mg/Sodium Chloride 250 ml @ 250 mls/hr ONCE STAT IV Last administered on 08/11/17at 09:16; Start 08/11/17 at 07:35; Stop 08/11/17 at 08:34 ; Status DC Family History not relevant to this admission. Social History smokes a pack a day- drinks occasionally. history of IVDA. Physical Exam Vital Signs Vital Signs Date Time Temp Pulse Resp B/P (MAP) Pulse Ox O2 Delivery O2 Flow Rate FiO2 08/11/17 11:06 72 16 133/78 (96) 99 Room Air 08/11/17 08:19 100 Room Air 08/11/17 07:15 99.2 92 15 151/92 (111) 100 Room Air 08/11/17 03:53 99.2 96 16 177/83 (114) 98 Physical Exam GENERAL: This is a well-nourished, well-developed patient, in no apparent distress. SKIN: No rashes, ecchymoses or lesions. Cool and dry. HEAD: Atraumatic. Normocephalic. No temporal or scalp tenderness. EYES: Pupils equal round and reactive. Extraocular motions intact. No scleral icterus. No injection or drainage. ENT: Nose without bleeding, purulent drainage or septal hematoma. Throat without erythema, tonsillar hypertrophy or exudate. Uvula midline. Airway patent. NECK: Trachea midline. No JVD or lymphadenopathy. Supple, nontender, no meningeal signs. CARDIOVASCULAR: Regular rate and rhythm without murmurs, gallops, or rubs. RESPIRATORY: Clear to auscultation. Breath sounds equal bilaterally. No wheezes , rales, or rhonchi. GASTROINTESTINAL: Abdomen soft, non-tender, nondistended. No hepato-splenomegaly , or palpable masses. No guarding. MUSCULOSKELETAL: Extremities without clubbing, cyanosis, or edema. No joint tenderness, effusion, or edema noted. No calf tenderness. Negative Homans sign bilaterally. NEUROLOGICAL: Awake and alert. Cranial nerves II through XII intact. Motor and sensory grossly within normal limits. Five out of 5 muscle strength in all muscle groups. Normal speech. Laboratory Laboratory Tests Test 08/11/17 07:55 08/11/17 08:00 08/11/17 08:13 08/11/17 09:45 White Blood Count 7.0 Red Blood Count 4.06 Hemoglobin 12.1 Hematocrit 36.3 Mean Corpuscular Volume 89.5 Mean Corpuscular Hemoglobin 29.7 Mean Corpuscular Hemoglobin Concent 33.2 Red Cell Distribution Width 14.4 Platelet Count 207 Mean Platelet Volume 8.7 Neutrophils (%) (Auto) 71.1 Lymphocytes (%) (Auto) 19.2 Monocytes (%) (Auto) 8.3 Eosinophils (%) (Auto) 0.6 Basophils (%) (Auto) 0.8 Neutrophils # (Auto) 4.9 Lymphocytes # (Auto) 1.3 Monocytes # (Auto) 0.6 Eosinophils # (Auto) 0.0 Basophils # (Auto) 0.1 CBC Comment DIFF FINAL Differential Comment Prothrombin Time 10.5 Prothromb Time International Ratio 1.0 Activated Partial Thromboplast Time 25.2 Lactic Acid Level 1.2 Urine Color YELLOW Urine Turbidity HAZY Urine pH 7.0 Urine Specific [place] 1.022 Urine Protein 30 Urine Glucose (UA) NEG Urine Ketones TRACE Urine Occult Blood NEG Urine Nitrite NEG Urine Bilirubin NEG Urine Urobilinogen 2.0 Urine Leukocyte Esterase SMALL Urine RBC 1 Urine WBC 2 Urine Squamous Epithelial Cells 31 Urine Transitional Epithelial Cells <1 Urine Bacteria RARE Urine Mucus FEW Microscopic Urinalysis Comment CATH-CULTURE IND Urine Opiates Screen NEG Urine Barbiturates Screen NEG Urine Amphetamines Screen NEG Urine Benzodiazepines Screen NEG Urine Cocaine Screen NEG Urine Cannabinoids Screen NEG Blood Urea Nitrogen 13 Creatinine 0.98 Random Glucose 130 Total Protein 8.5 Albumin 3.9 Calcium Level 9.3 Magnesium Level 1.7 Alkaline Phosphatase 88 Aspartate Amino Transf (AST/SGOT) 46 Alanine Aminotransferase (ALT/SGPT) 83 Total Bilirubin 0.5 Sodium Level 140 Potassium Level 3.4 Chloride Level 105 Carbon Dioxide Level 26.9 Anion Gap 8 Estimat Glomerular Filtration Rate 60 Date/Time Source Procedure Growth Status 08/11/17 08:00 Blood Peripheral Aerobic Blood Culture Pending Received 08/11/17 08:00 Blood Peripheral Anaerobic Blood Culture Pending Received 08/11/17 08:13 Urine Catheterized Urine Urine Culture Pending Received Result Diagram: 08/11/17 0755 08/11/17 0945 Imaging Last Impressions Chest X-Ray 08/11/17 0728 Signed Impressions: Service Date/Time: July 07:41 - CONCLUSION: No acute disease. Rock Aaron MD Neck CT 08/11/17 0000 Signed Impressions: Service Date/Time: July 10:43 - CONCLUSION: Superficial cellulitic and deep soft tissue process in the left neck which is presumably inflammatory as described in detail above. Raf Shi MD Capjohni VTE Risk Assessment Caprini VTE Risk Assessment: No/Low Risk (score <= 1) Caprini Risk Assessment Model Point Value = 1 Point Value = 2 Point Value = 3 Point Value = 5 Age 41-60 Minor surgery BMI > 25 kg/m2 Swollen legs Varicose veins or History of unexplained or recurrent spontaneous Oral contraceptives or hormone replacement Sepsis (< 1 month) Serious lung disease, including pneumonia (< 1 month) Abnormal pulmonary function Acute myocardial infarction Congestive heart failure (< 1 month) History of inflammatory bowel disease Medical patient at bed rest Age 61-74 Arthroscopic surgery Major open surgery (> 45 min) Laparoscopic surgery (> 45 min) Malignancy Confined to bed (> 72 hours) Immobilizing plaster cast Central venous access Age >= 75 History of VTE Family history of VTE Factor V Leiden Prothrombin [id number] Lupus anticoagulant Anticardiolipin antibodies Elevated serum homocysteine Heparin-induced thrombocytopenia Other congenital or acquired thrombophilia Stroke (< 1 month) Elective arthroplasty Hip, pelvis, or leg fracture Acute spinal cord injury (< 1 month) Prophylaxis Regimen Total Risk Factor Score Risk Level Prophylaxis Regimen 0-1 Low Early ambulation 2 Moderate Order ONE of the following: *Sequential Compression Device (SCD) *Heparin 5000 units SQ BID 3-4 Higher Order ONE of the following medications: *Heparin 5000 units SQ TID *Enoxaparin/Lovenox 40 mg SQ daily (WT < 150 kg, CrCl > 30 mL/min) *Enoxaparin/Lovenox 30 mg SQ daily (WT < 150 kg, CrCl > 10-29 mL/min) *Enoxaparin/Lovenox 30 mg SQ BID (WT < 150 kg, CrCl > 30 mL/min) AND/OR *Sequential Compression Device (SCD) 5 or more Highest Order ONE of the following medications: *Heparin 5000 units SQ TID (Preferred with Epidurals) *Enoxaparin/Lovenox 40 mg SQ daily (WT < 150 kg, CrCl > 30 mL/min) *Enoxaparin/Lovenox 30 mg SQ daily (WT < 150 kg, CrCl > 10-29 mL/min) *Enoxaparin/Lovenox 30 mg SQ BID (WT < 150 kg, CrCl > 30 mL/min) AND *Sequential Compression Device (SCD) Assessment and Plan Assessment and Plan A/P - left neck cellulitis/ abscess continue with broad-spectrum IV antibiotics and follow the cultures- will consult general surgery. continue with pain control. of note the patient was admitted fairly recently for the same problem and was discharged on PO Clindamycin which she didn't finish. -elevated LFT's- f/u as outpatient. Discussed Condition With ER physician and the patient. Physician Certification 2 Midnight Certification Type: Admission for Inpatient Services Order for Inpatient Services The services are ordered in accordance with Medicare regulations or non- Medicare payer requirements, as applicable. In the case of services not specified as inpatient-only, they are appropriately provided as inpatient services in accordance with the 2-midnight benchmark. Estimated LOS (days): 2 days is the estimated time the patient will need to remain in the hospital, assuming treatment plan goals are met and no additional complications. Post-Hospital Plan: Home Germaine Cadet MD Aug 11, 2017 12:25
[2017-08-11] MEDS: ACETAMINOPHEN/HYDROcodone 325 MG/5 MG TAB PO PRN ×3 (12:56→20:56)
--- NOTE | 2017-08-11 13:33 | PD.CONS ---
cc: Richard Maldonado MD [facility] Service CONSULTATION NOTE FOR SURGICAL ATTENDING, DR. RICHARD MALDONADO General Surgery Consult Requested By Dr. Cadet Reason for Consult LEFT neck abscess Primary Care Physician No Primary Care Physician History of Present Illness This is a 52 year old female with a past medical history of arthritis, migraines and a past history of IV drug abuse but last used in June of 2017. The patient was admitted about 8 weeks ago with a similar presentation of a bump on her neck. She was given antibiotics and the bump decreased in size. It was never drained. The patient was sent home with a prescription for antibiotics but only completed half the prescribed quantity because she started feeling good. On Tuesday, she started to feel chills and not feel well. She noticed the lump on her neck increase in size and that it was becoming red. The patient came to the ED for evaluation. A CT neck was obtained which shows a superficial cellulitic soft tissue process in the LEFT neck. She has a normal WBC. A General Surgery consultation has been requested. Review of Systems Constitutional: COMPLAINS OF: Fatigue, Chills, Change in appetite, DENIES: Weight loss Endocrine: DENIES: Polydipsia, Polyuria, Polyphagia Eyes: DENIES: Diplopia, Eye inflammation Ears, nose, mouth, throat: DENIES: Hearing loss Respiratory: DENIES: Apneas Cardiovascular: DENIES: Chest pain Gastrointestinal: DENIES: Abdominal pain, Nausea, Vomiting Genitourinary: DENIES: Urinary frequency Musculoskeletal: DENIES: Joint pain Integumentary: DENIES: Abnormal pigmentation Hematologic/lymphatic: DENIES: Bruising Immunologic/allergic: DENIES: Eczema Neurologic: DENIES: Headache, Localized weakness Psychiatric: DENIES: Confusion, Mood changes, Depression Past Family Social History Past Medical History Arthritis Migraines Past Surgical History Breast augmentation Back surgery x 3 Tubal ligation Reported Medications None Allergies: Coded Allergies: No Known Allergies (Unverified Allergy, Unknown, 08/11/17) Active Ordered Medications Current Medications Medications (Trade) Dose Ordered Sig/Jaziel Route Start Time Stop Time Status Last Admin Piperacillin Sod/ Tazobactam Sod 50 ml @ 100 mls/hr Q6H IV 08/11/17 14:00 Pharmacy Profile Note 0 ml @ 0 mls/hr UNSCH OTHER 08/11/17 12:15 (Tylenol) 650 mg Q4H PRN PO 08/11/17 12:15 ([place] 5-325 Mg) 1 tab Q4H PRN PO 08/11/17 12:15 08/11/17 12:56 Vancomycin HCl 1250 mg/Sodium Chloride 262.5 ml @ 250 mls/hr Q12H IV 08/11/17 18:00 Miscellaneous Information SPECIFIC LAB TO BE DRAWN:VANCOMYCIN TROUGH DATE TO... ONCE ONCE .XX 08/13/17 05:45 08/13/17 05:46 Family History None contributory Social History + tobacco use ----1.5 ppd since age 30 + ETOH--- varies on frequency and amount; usually everyday recently Denies current IVDA--- prior history of injecting cocaine; last used at the end of June ---she used veins in her arms exclusively Physical Exam Vital Signs Vital Signs Date Time Temp Pulse Resp B/P (MAP) Pulse Ox O2 Delivery O2 Flow Rate FiO2 08/11/17 11:06 72 16 133/78 (96) 99 Room Air 08/11/17 08:19 100 Room Air 08/11/17 07:15 99.2 92 15 151/92 (111) 100 Room Air 08/11/17 03:53 99.2 96 16 177/83 (114) 98 Physical Exam GENERAL: 52 year old female with nervous pattern of talking resting in bed in no acute distress SKIN: Warm and dry. HEAD: Atraumatic. Normocephalic. EYES: Pupils equal and round. No scleral icterus. No injection or drainage. ENT: No nasal bleeding or discharge. Mucous membranes pink and moist. NECK: Trachea midline. No JVD. Large palpable tender area on LEFT neck; redness ; not spontaneously draining CARDIOVASCULAR: Regular rate and rhythm. RESPIRATORY: No accessory muscle use. Clear to auscultation. Breath sounds equal bilaterally. GASTROINTESTINAL: Abdomen soft, non-tender, nondistended. Hepatic and splenic margins not palpable. MUSCULOSKELETAL: Extremities without clubbing, cyanosis, or edema. No obvious deformities. NEUROLOGICAL: Awake and alert. No obvious cranial nerve deficits. Motor grossly within normal limits. Five out of 5 muscle strength in the arms and legs. Normal but fast talking speech. PSYCHIATRIC: Appropriate mood and affect; insight and judgment normal. Laboratory Laboratory Tests Test 08/11/17 07:55 08/11/17 08:00 08/11/17 08:13 08/11/17 09:45 White Blood Count 7.0 Red Blood Count 4.06 Hemoglobin 12.1 Hematocrit 36.3 Mean Corpuscular Volume 89.5 Mean Corpuscular Hemoglobin 29.7 Mean Corpuscular Hemoglobin Concent 33.2 Red Cell Distribution Width 14.4 Platelet Count 207 Mean Platelet Volume 8.7 Neutrophils (%) (Auto) 71.1 Lymphocytes (%) (Auto) 19.2 Monocytes (%) (Auto) 8.3 Eosinophils (%) (Auto) 0.6 Basophils (%) (Auto) 0.8 Neutrophils # (Auto) 4.9 Lymphocytes # (Auto) 1.3 Monocytes # (Auto) 0.6 Eosinophils # (Auto) 0.0 Basophils # (Auto) 0.1 CBC Comment DIFF FINAL Differential Comment Prothrombin Time 10.5 Prothromb Time International Ratio 1.0 Activated Partial Thromboplast Time 25.2 Lactic Acid Level 1.2 Urine Color YELLOW Urine Turbidity HAZY Urine pH 7.0 Urine Specific [place] 1.022 Urine Protein 30 Urine Glucose (UA) NEG Urine Ketones TRACE Urine Occult Blood NEG Urine Nitrite NEG Urine Bilirubin NEG Urine Urobilinogen 2.0 Urine Leukocyte Esterase SMALL Urine RBC 1 Urine WBC 2 Urine Squamous Epithelial Cells 31 Urine Transitional Epithelial Cells <1 Urine Bacteria RARE Urine Mucus FEW Microscopic Urinalysis Comment CATH-CULTURE IND Urine Opiates Screen NEG Urine Barbiturates Screen NEG Urine Amphetamines Screen NEG Urine Benzodiazepines Screen NEG Urine Cocaine Screen NEG Urine Cannabinoids Screen NEG Blood Urea Nitrogen 13 Creatinine 0.98 Random Glucose 130 Total Protein 8.5 Albumin 3.9 Calcium Level 9.3 Magnesium Level 1.7 Alkaline Phosphatase 88 Aspartate Amino Transf (AST/SGOT) 46 Alanine Aminotransferase (ALT/SGPT) 83 Total Bilirubin 0.5 Sodium Level 140 Potassium Level 3.4 Chloride Level 105 Carbon Dioxide Level 26.9 Anion Gap 8 Estimat Glomerular Filtration Rate 60 Date/Time Source Procedure Growth Status 08/11/17 08:00 Blood Peripheral Aerobic Blood Culture Pending Received 08/11/17 08:00 Blood Peripheral Anaerobic Blood Culture Pending Received 08/11/17 08:13 Urine Catheterized Urine Urine Culture Pending Received Result Diagram: 08/11/17 0755 08/11/17 0945 Imaging Last 48 hours Impressions Chest X-Ray 08/11/17 0728 Signed Impressions: Service Date/Time: July 07:41 - CONCLUSION: No acute disease. Rock Aaron MD Neck CT 08/11/17 0000 Signed Impressions: Service Date/Time: July 10:43 - CONCLUSION: Superficial cellulitic and deep soft tissue process in the left neck which is presumably inflammatory as described in detail above. Raf Shi MD Assessment and Plan Problem List: (1) Cellulitis and abscess of neck ICD Codes: L03.221 - Cellulitis of neck; L02.11 - Cutaneous abscess of neck Status: Acute (2) Abscess of neck ICD Codes: L02.11 - Cutaneous abscess of neck Status: Acute (3) Abscess ICD Codes: L02.91 - Cutaneous abscess, unspecified Status: Acute (4) IVDU (intravenous drug user) ICD Codes: F19.90 - Other psychoactive substance use, unspecified, uncomplicated Status: Acute (5) Cellulitis of neck ICD Codes: L03.221 - Cellulitis of neck Status: Acute Assessment and Plan 52 year old female with large LEFT neck abscess -NPO -Plan for OR incision and drainage -Obtain consents -Continue antibiotics -Thank you for this consult; We will continue to follow Discussed Condition With Dr. Maldonado -Dr. Helio Blanco Attending Statement CONSULTATION NOTE FOR SURGICAL ATTENDING, DR. RICHARD MALDONADO Patient has an abscess to the left neck with fluctuance erythema tenderness Will go to the operating room for formal debridement Explained to the patient she may have an open wound with open packing I agree with above assessment and plan. The exam, history, and the medical decision-making described in the above note were completed with the assistance of the mid-level provider. I reviewed and agree with the findings presented. I attest that I had a [id number] encounter with the patient on the same day, and personally performed and documented my assessment and findings in the medical record. The following services were provided during this hospital visit: Chart data review, vital sign assessments/reviewing monitor data Review of consultations notes if present. Medication orders/review and/or management Ordering and/or reviewing lab tests Ordering and/or interpreting/reviewing x-rays and/or diagnostic studies Care of the patient and discussion of the patient with the care team Documentation time To help prompt me to consider important information that might be impacting today's encounter and assessment, information from prior notes written by myself or my colleagues may have been "brought forward/copy and pasted" into today's note. Lydia Hernandez/First Katie WHELAN Aug 11, 2017 13:33 Richard Maldonado MD Aug 12, 2017 13:25
[2017-08-11] MEDS: PIPERACIL-TAZO 3.375 GM PREMIX 50 ML IV SCH ×2 (13:51→20:56)
[2017-08-11] MEDS: VANCOMYCIN INJ 1,250 MG in SODIUM CHLOR 0.9% 250 ML INJ 250 ML IV SCH (17:49)
[2017-08-11] MEDS ORDERED: LACTATED RINGER'S 1000 ML IV PRN (22:15)
[2017-08-12] VITALS: BP 128/58; PULSE 67; RESP 16; TEMP 97.9; O2SAT 98
[2017-08-12] MEDS: ACETAMINOPHEN/HYDROcodone 325 MG/5 MG TAB PO PRN ×3 (01:50→10:30)
[2017-08-12] MEDS: PIPERACIL-TAZO 3.375 GM PREMIX 50 ML IV SCH ×4 (01:51→20:00)
[2017-08-12] MEDS: VANCOMYCIN INJ 1,250 MG in SODIUM CHLOR 0.9% 250 ML INJ 250 ML IV SCH ×2 (05:49→16:36)
[2017-08-12 08:00] VITALS: BP 145/78; PULSE 69; RESP 18; TEMP 97.9; O2SAT 99
--- NOTE | 2017-08-12 08:07 | HHI.PR ---
Subjective Remarks in no acute distress. looks more comfortable today. pain to the left neck is better. no fever. Objective Vitals Vital Signs Date Time Temp Pulse Resp B/P (MAP) Pulse Ox O2 Delivery O2 Flow Rate FiO2 08/12/17 00:00 97.9 67 16 128/58 (81) 98 08/11/17 20:00 98.1 58 16 139/67 (91) 98 08/11/17 16:00 98.7 69 17 134/71 (92) 98 08/11/17 14:43 08/11/17 14:30 22 08/11/17 13:39 72 16 146/67 (93) 97 Room Air 08/11/17 11:06 72 16 133/78 (96) 99 Room Air 08/11/17 08:19 100 Room Air I/O 08/11/17 08/11/17 08/11/17 08/12/17 08/12/17 08/12/17 07:00 15:00 23:00 07:00 15:00 23:00 Intake Total 1395 ml 262.5 ml Balance 1395 ml 262.5 ml Intake IV Total 1395 ml 262.5 ml # Voids 1 Result Diagram: 08/11/17 0755 08/11/17 0945 Imaging Last Impressions Chest X-Ray 08/11/17 0728 Signed Impressions: Service Date/Time: July 07:41 - CONCLUSION: No acute disease. Rock Aaron MD Neck CT 08/11/17 0000 Signed Impressions: Service Date/Time: July 10:43 - CONCLUSION: Superficial cellulitic and deep soft tissue process in the left neck which is presumably inflammatory as described in detail above. Raf Shi MD Objective Remarks GENERAL: This is a well-nourished, well-developed patient, in no apparent distress. Neck; left neck abscess CARDIOVASCULAR: Regular rate and regular rhythm without murmurs, gallops, or rubs. RESPIRATORY: Clear to auscultation. Breath sounds equal bilaterally. No wheezes , rales, or rhonchi. GASTROINTESTINAL: Abdomen soft, non-tender, nondistended. Normal, active bowel sounds MUSCULOSKELETAL: Extremities without clubbing, cyanosis, or edema. NEURO: Alert & Oriented x4 to person, place, time, situation. Moves all ext x4 Medications and IVs Inpatient Medications Acetaminophen (Tylenol) 650 mg Q4H PRN PO FEVER/ PAIN 1-5; Start 08/11/17 at 12 :15 Acetaminophen/ Hydrocodone Bitart ([place] 5-325 Mg) 1 tab Q4H PRN PO PAIN 6-10 Last administered on 08/12/17at 05:48; Start 08/11/17 at 12:15 Lactated Ringer's 1,000 ml @ 30 mls/hr Q24H PRN IV SEE LABEL COMMENTS; Start at 22:15; Stop 08/14/17 at 22:14 Miscellaneous Information SPECIFIC LAB TO BE DRAWN:VANCOMYCIN TROUGH DATE TO... ONCE ONCE .XX ; Start 08/13/17 at 05:45; Stop 08/13/17 at 05:46 Pharmacy Profile Note 0 ml @ 0 mls/hr UNSCH OTHER ; Start 08/11/17 at 12:15 Piperacillin Sod/ Tazobactam Sod 50 ml @ 100 mls/hr Q6H IV Last administered on 08/12/17at 01:51; Start 08/11/17 at 14:00 Sodium Chloride 1,000 ml @ 999 mls/hr BOLUS ONCE IV Last administered on 08/11at 08:12; Start 08/11/17 at 07:30; Stop 08/11/17 at 08:30; Status DC Vancomycin HCl 1000 mg/Sodium Chloride 250 ml @ 250 mls/hr ONCE STAT IV Last administered on 08/11/17at 09:16; Start 08/11/17 at 07:35; Stop 08/11/17 at 08:34 ; Status DC Vancomycin HCl 1250 mg/Sodium Chloride 262.5 ml @ 250 mls/hr Q12H IV Last administered on 08/12/17at 05:49; Start 08/11/17 at 18:00 A/P Problem List: (1) Cellulitis of neck ICD Code: L03.221 - Cellulitis of neck Status: Acute Assessment and Plan A/P - left neck cellulitis/ abscess continue with broad-spectrum IV antibiotics and follow the cultures- continue with pain control. surgery consult appreciated; NPO for possible I/D today. of note the patient was admitted fairly recently for the same problem and was discharged on PO Clindamycin which she didn't finish. -elevated LFT's- f/u as outpatient. Discharge Planning awaiting surgical intervention. Germaine Cadet MD Aug 12, 2017 08:07
[2017-08-12] MEDS ORDERED: MIDAZOLAM HCL 2 MG/2 ML VIAL ONE ×2 (11:02→11:44)
[2017-08-12] MEDS ORDERED: ACETAMINOPHEN 1000 MG/100 ML 100 ML IV ONE (11:02)
[2017-08-12] MEDS ORDERED: KETAMINE HCL 10 MG/5 ML SYRINGE IV PUSH ONE (11:02)
--- NOTE | 2017-08-12 11:32 | EKG ---
Date Performed: 08/11/2017 Time Performed: 15:48:18 PTAGE: 52 years EKG: Sinus rhythm NORMAL ECG PREVIOUS TRACING : 06/13/2017 07.08 Since the previous tracing, no significant change noted DOCTOR: Poncho Hudson Interpretating Date/Time 08/12/2017 11:27:53
[2017-08-12] MEDS ORDERED: DEXMEDETOMIDINE HCL 200 MCG/2 ML VIAL ONE (11:43)
[2017-08-12] MEDS ORDERED: HYDROmorphone HCL PF 2 MG/ML VIAL ONE (11:44)
[2017-08-12] MEDS ORDERED: DEXAMETHASONE SOD PHOS 4 MG/ML VIAL IV ONE (12:00)
[2017-08-12] MEDS ORDERED: ONDANSETRON HCL 4 MG/2 ML VIAL IV ONE (12:00)
[2017-08-12] MEDS ORDERED: LIDOCAINE HCL 1% PF 5 ML SYRINGE OTHER ONE (12:00)
[2017-08-12] MEDS ORDERED: NEOSTIGMINE 5 MG/5 ML SYRINGE IV PUSH ONE (12:00)
[2017-08-12] MEDS ORDERED: SODIUM CHLORIDE 0.9% 20 ML VIAL IV ONE (12:00)
[2017-08-12] MEDS ORDERED: PROPOFOL 200 MG/20 ML AMP IV ONE (12:00)
[2017-08-12] MEDS ORDERED: ROCURONIUM INJ 50 MG/5 ML SYRINGE IV PUSH ONE (12:00)
[2017-08-12] MEDS ORDERED: GLYCOPYRROLATE 1 MG/5 ML SYRINGE IV PUSH ONE (12:00)
[2017-08-12] MEDS ORDERED: BUPIVACAINE/EPINEPHRINE 0.25% 50 ML VIAL ONE (12:21)
[2017-08-12] MEDS ORDERED: fentaNYL CITRATE 250 MCG/5 ML AMP ONE (12:55)
--- NOTE | 2017-08-12 13:14 | HHI.PR ---
cc: Richard Maldonado MD Immediate Post Op Note Procedure Date: Aug 12, 2017 Pre Op Diagnosis: (1) Cellulitis and abscess of neck (2) Abscess (3) Cellulitis of neck (4) IVDU (intravenous drug user) (5) Abscess of neck Post Op Diagnosis: (1) Cellulitis and abscess of neck (2) Cellulitis of neck (3) IVDU (intravenous drug user) (4) Abscess (5) Abscess of neck Surgeon: Richard Maldonado Clinical Education Consultant(s): Please refer to or record Procedure: Incision and drainage of left neck abscess Excision of skin subcutaneous base tissue and fascia left neck Findings: Necrotic subcutaneous tissue with abscess left neck Complications: None Specimen(s) removed: Skin subcutaneous base tissue fascia Culture Anesthesia: General Drains: None, Other IVF Patient to: PACU Patient Condition: Good Implant/Devices: SEE IMPLANT LOG (if applicable) Date/Time of Procedure: SEE SURGICAL CARE RECORD Richard Maldonado MD Aug 12, 2017 13:14
[2017-08-12] MEDS ORDERED: DO NOT ADM ANY ANTICOAGULANT DRUGS PRN (13:28)
--- NOTE | 2017-08-12 15:50 | MP ---
cc: Richard Maldonado MD DATE OF OPERATION: 08/12/2017 PREOPERATIVE DIAGNOSIS: Abscess to the left neck. POSTOPERATIVE DIAGNOSIS: Abscess to the left neck. PROCEDURE PERFORMED: Debridement of abscess of left neck with skin, subcutaneous tissue and fascia. ANESTHESIA: General. SURGEON: Richard Maldonado MD INDICATION: This is a pleasant 52-year-old female who has an abscess to the left side of her neck that is unresponsive to antibiotic therapies. Plans were made for above. DESCRIPTION OF PROCEDURE: The patient was taken to the operating room and placed in supine position. After anesthesia, her left neck was prepped with Betadine. It had previously been marked. She has about a 4-5 cm fluctuant area in the left neck just underneath the skin and probably as deep as the sternocleidomastoid muscle. We made an oblique incision overlying this area, excised some of the skin to open it up. It was very tight. Purulent material returned and this was cultured. Some necrotic-appearing tissue, skin, subcutaneous tissue and fascia was then sharply dissected free using sharp scissors and knives, and the electrocautery device. We then irrigated copiously until it was clear. I broke up some loculations. Because of the amount of inflammatory response, this was just packed with iodoform gauze after hemostasis was assured and a sterile bandage was applied. The patient tolerated the procedure well and will need to be on IV antibiotics with dressing changes to start tomorrow, wet-to-dry. Richard Maldonado MD JMEKHI/LARRY , 03:33 PM , 03:49 PM
[2017-08-12 16:00] VITALS: BP 136/84; PULSE 80; RESP 20; TEMP 97.6; O2SAT 94
[2017-08-12] MEDS ORDERED: ONDANSETRON HCL 4 MG/2 ML VIAL IV PUSH PRN (16:15)
[2017-08-12 16:33] VITALS: O2SAT 96
[2017-08-12] MEDS: oxyCODONE/ACETAMINOPHEN 5 MG/325 MG TAB PO PRN ×2 (17:40→23:19)
[2017-08-12 17:53] VITALS: O2SAT 96
[2017-08-12 20:00] VITALS: BP 132/69; PULSE 70; RESP 18; TEMP 97.5; O2SAT 94
[2017-08-13] VITALS: BP 132/67; PULSE 75; RESP 18; TEMP 97.4; O2SAT 98
[2017-08-13] MEDS: ZOLPIDEM TARTRATE 5 MG TAB PO PRN (01:36)
[2017-08-13] MEDS: PIPERACIL-TAZO 3.375 GM PREMIX 50 ML IV SCH ×4 (01:37→19:34)
[2017-08-13] MEDS: oxyCODONE/ACETAMINOPHEN 5 MG/325 MG TAB PO PRN ×5 (05:42→23:01)
[2017-08-13] MEDS: VANCOMYCIN INJ 1,250 MG in SODIUM CHLOR 0.9% 250 ML INJ 250 ML IV SCH ×2 (05:43→16:45)
[2017-08-13] MEDS ORDERED: PHARMACY ORDERED LAB ONE (05:45)
[2017-08-13 08:00] VITALS: BP 143/86; PULSE 57; RESP 17; TEMP 97.8; O2SAT 98
[2017-08-13 08:22] LABS: BASOPHIL % 0.4 % (0.0-2.0); EOSINOPHIL # 0.1 TH/MM3 (0-0.4); EOSINOPHIL % 1.2 % (0.0-4.0); HEMATOCRIT 35.1 % (35.0-46.0); HEMOGLOBIN 11.4 GM/DL (11.6-15.3); LYMPH % 22.3 % (9.0-44.0); MEAN CELL VOLUME 90.4 FL (80.0-100.0); MEAN CORPUSCULAR HEMOGLOBIN 29.4 PG (27.0-34.0); MEAN CORPUSCULAR HGB CONC 32.5 % (32.0-36.0); MONO % 8.3 % (0.0-8.0); MONOCYTE # 0.7 TH/MM3 (0-0.9); NEUT % 67.8 % (16.0-70.0); PLATELET COUNT 220 TH/MM3 (150-450); RED BLOOD COUNT 3.88 MIL/MM3 (4.00-5.30); RED CELL DISTRIBUTION WIDTH 14.6 % (11.6-17.2); WHITE BLOOD COUNT 8.9 TH/MM3 (4.0-11.0)
--- NOTE | 2017-08-13 08:26 | HHI.PR ---
Subjective Remarks in no acute distress. pain is fairly controlled. complaining of nausea. no fever. Objective Vitals Vital Signs Date Time Temp Pulse Resp B/P (MAP) Pulse Ox O2 Delivery O2 Flow Rate FiO2 08/13/17 00:00 97.4 75 18 132/67 (88) 98 08/12/17 20:00 97.5 70 18 132/69 (90) 94 08/12/17 17:53 96 21 08/12/17 16:33 96 21 08/12/17 16:00 97.6 80 20 136/84 (101) 94 08/12/17 14:00 98.0 60 20 119/62 (81) 96 Room Air 08/12/17 13:45 64 20 136/59 (84) 96 Room Air 08/12/17 13:21 98.2 81 20 127/60 (82) 96 Room Air I/O 08/12/17 08/12/17 08/12/17 08/13/17 08/13/17 08/13/17 07:00 15:00 23:00 07:00 15:00 23:00 Intake Total 1000 ml 1512 ml 50 ml Output Total 1 ml Balance 999 ml 1512 ml 50 ml Intake Oral 1200 ml IV Total 312 ml 50 ml Other 1000 ml Output Estimated Blood Loss 1 ml # Voids 4 Result Diagram: 08/11/17 0755 08/11/17 0945 Imaging Last Impressions Chest X-Ray 08/11/17 0728 Signed Impressions: Service Date/Time: July 07:41 - CONCLUSION: No acute disease. Rock Aaron MD Neck CT 08/11/17 0000 Signed Impressions: Service Date/Time: July 10:43 - CONCLUSION: Superficial cellulitic and deep soft tissue process in the left neck which is presumably inflammatory as described in detail above. Raf Shi MD Objective Remarks GENERAL: This is a well-nourished, well-developed patient, in no apparent distress. Neck; left neck abscess CARDIOVASCULAR: Regular rate and regular rhythm without murmurs, gallops, or rubs. RESPIRATORY: Clear to auscultation. Breath sounds equal bilaterally. No wheezes , rales, or rhonchi. GASTROINTESTINAL: Abdomen soft, non-tender, nondistended. Normal, active bowel sounds MUSCULOSKELETAL: Extremities without clubbing, cyanosis, or edema. NEURO: Alert & Oriented x4 to person, place, time, situation. Moves all ext x4 Procedures Debridement of abscess of left neck with skin, subcutaneous tissue and fascia. Medications and IVs Inpatient Medications Acetaminophen (Tylenol) 650 mg Q4H PRN PO FEVER/ PAIN 1-5; Start 08/11/17 at 12 :15 Acetaminophen/ Hydrocodone Bitart ([place] 5-325 Mg) 1 tab Q4H PRN PO PAIN 6-10 Last administered on 08/12/17at 10:30; Start 08/11/17 at 12:15; Stop 08/12/17 at 15:41; Status DC Lactated Ringer's 1,000 ml @ 30 mls/hr Q24H PRN IV SEE LABEL COMMENTS; Start at 22:15; Stop 08/14/17 at 22:14 Miscellaneous Information ALL NURSING DEPARTME... UNSCH PRN .XX SEE LABEL COMMENTS; Start 08/12/17 at 13:28; Stop 08/13/17 at 13:27 Ondansetron HCl (Zofran Inj) 4 mg Q8H PRN IV PUSH NAUSEA Last administered on at 16:36; Start 08/12/17 at 16:15 Oxycodone/ Acetaminophen (Percocet 5-325 Mg) 1 tab Q4H PRN PO PAIN SCALE 6-10 Last administered on 08/13/17at 05:42; Start 08/12/17 at 15:45 Pharmacy Profile Note 0 ml @ 0 mls/hr UNSCH OTHER ; Start 08/11/17 at 12:15 Piperacillin Sod/ Tazobactam Sod 50 ml @ 100 mls/hr Q6H IV Last administered on 08/13/17at 01:37; Start 08/11/17 at 14:00 Sodium Chloride 1,000 ml @ 999 mls/hr BOLUS ONCE IV Last administered on 08/11at 08:12; Start 08/11/17 at 07:30; Stop 08/11/17 at 08:30; Status DC Vancomycin HCl 1000 mg/Sodium Chloride 250 ml @ 250 mls/hr ONCE STAT IV Last administered on 08/11/17at 09:16; Start 08/11/17 at 07:35; Stop 08/11/17 at 08:34 ; Status DC Vancomycin HCl 1250 mg/Sodium Chloride 262.5 ml @ 250 mls/hr Q12H IV Last administered on 08/13/17at 05:43; Start 08/11/17 at 18:00 Zolpidem Tartrate (Ambien) 5 mg HS PRN PO INSOMNIA Last administered on at 01:36; Start 08/12/17 at 10:00 A/P Problem List: (1) Cellulitis of neck ICD Code: L03.221 - Cellulitis of neck Status: Acute Assessment and Plan A/P - left neck cellulitis/ abscess s/p Debridement of abscess of left neck with skin, subcutaneous tissue and fascia. continue with broad-spectrum IV antibiotics and follow the cultures- continue with pain control. surgery following. -nausea; antiemetics as needed. -elevated LFT's- f/u as outpatient. Discharge Planning dc home when the cultures resulted and cleared by surgery. Germaine Cadet MD Aug 13, 2017 08:26
[2017-08-13 08:54] LABS: ALBUMIN 3.4 GM/DL (3.4-5.0); ALKALINE PHOSPHATASE 69 U/L (45-117); ALT (GPT) 70 U/L (10-53); AST (GOT) 44 U/L (15-37); BICARBONATE 26.4 MEQ/L (21.0-32.0); BLOOD UREA NITROGEN 11 MG/DL (7-18); CALCIUM 8.7 MG/DL (8.5-10.1); CHLORIDE 109 MEQ/L (98-107); CREATININE 0.87 MG/DL (0.50-1.00); GLOMERULAR FILTRATION RATE 69 ML/MIN (>89); GLUCOSE,RANDOM 84 MG/DL (74-106); SODIUM (NA) 140 MEQ/L (136-145); TOTAL BILIRUBIN ADULT 0.3 MG/DL (0.2-1.0); TOTAL PROTEIN 7.7 GM/DL (6.4-8.2)
[2017-08-13] MEDS: ONDANSETRON HCL 4 MG/2 ML VIAL IV PUSH PRN ×3 (09:13→23:01)
--- NOTE | 2017-08-13 11:28 | HHI.PR ---
Subjective Subjective Notes Patient complains of pain and nausea. She has received medications for these complaints. Objective Vitals/I&O Vital Signs Date Time Temp Pulse Resp B/P (MAP) Pulse Ox O2 Delivery O2 Flow Rate FiO2 08/13/17 08:00 97.8 57 17 143/86 (105) 98 08/12/17 17:53 21 08/12/17 14:00 Room Air Labs Laboratory Tests Test 08/13/17 05:45 08/13/17 07:48 Vancomycin Level Trough 11.4 White Blood Count 8.9 Red Blood Count 3.88 Hemoglobin 11.4 Hematocrit 35.1 Mean Corpuscular Volume 90.4 Mean Corpuscular Hemoglobin 29.4 Mean Corpuscular Hemoglobin Concent 32.5 Red Cell Distribution Width 14.6 Platelet Count 220 Mean Platelet Volume 9.0 Neutrophils (%) (Auto) 67.8 Lymphocytes (%) (Auto) 22.3 Monocytes (%) (Auto) 8.3 Eosinophils (%) (Auto) 1.2 Basophils (%) (Auto) 0.4 Neutrophils # (Auto) 6.0 Lymphocytes # (Auto) 2.0 Monocytes # (Auto) 0.7 Eosinophils # (Auto) 0.1 Basophils # (Auto) 0.0 CBC Comment DIFF FINAL Differential Comment Blood Urea Nitrogen 11 Creatinine 0.87 Random Glucose 84 Total Protein 7.7 Albumin 3.4 Calcium Level 8.7 Alkaline Phosphatase 69 Aspartate Amino Transf (AST/SGOT) 44 Alanine Aminotransferase (ALT/SGPT) 70 Total Bilirubin 0.3 Sodium Level 140 Potassium Level 4.3 Chloride Level 109 Carbon Dioxide Level 26.4 Anion Gap 5 Estimat Glomerular Filtration Rate 69 Date/Time Source Procedure Growth Status 08/11/17 08:00 Blood Peripheral Aerobic Blood Culture - Preliminary NO GROWTH IN 2 DAYS Resulted 08/11/17 08:00 Blood Peripheral Anaerobic Blood Culture - Preliminary NO GROWTH IN 2 DAYS Resulted 08/11/17 08:13 Urine Catheterized Urine Urine Culture - Final 50-100,000 CFU/ML MIXED GRAM POSITIVE... Complete 08/12/17 12:51 Abscess Neck Fungal Smear - Final NO FUNGAL ELEMENTS SEEN. Resulted 08/12/17 12:51 Abscess Neck Fungal Culture Pending Resulted Radiology Last 48 hours Impressions Chest X-Ray 08/11/17 0728 Signed Impressions: Service Date/Time: July 07:41 - CONCLUSION: No acute disease. Rock Aaron MD Neck CT 08/11/17 0000 Signed Impressions: Service Date/Time: July 10:43 - CONCLUSION: Superficial cellulitic and deep soft tissue process in the left neck which is presumably inflammatory as described in detail above. Raf Shi MD Narrative Exam Left neck dressing removed. No purulent drainage noted. A normal saline wet-to -dry dressing was placed using a 2 x 2 covered by 4 x 4's and a Driss around the neck avoiding placement of tape on her skin. There is no erythema. There is residual induration and edema. A/P Problem List: (1) Cellulitis and abscess of neck ICD Codes: L03.221 - Cellulitis of neck; L02.11 - Cutaneous abscess of neck Status: Acute (2) Abscess of neck ICD Codes: L02.11 - Cutaneous abscess of neck Status: Acute (3) Abscess ICD Codes: L02.91 - Cutaneous abscess, unspecified Status: Acute (4) IVDU (intravenous drug user) ICD Codes: F19.90 - Other psychoactive substance use, unspecified, uncomplicated Status: Acute (5) Cellulitis of neck ICD Codes: L03.221 - Cellulitis of neck Status: Acute Assessment and Plan Postop day 1 incision and drainage debridement left neck abscess. Normal saline wet-to-dry dressing placed. Awaiting results from wound culture for transition of antibiotic therapy from IV to oral antibiotics. Okay for the patient to shower. When arrangements are made for outpatient antibiotic and dressing changes is okay for her to be discharged from a surgical standpoint. She can follow-up in Dr. Maldonado's office. Poncho Boggs MD Aug 13, 2017 11:28
[2017-08-13 12:00] VITALS: BP 165/78; PULSE 61; RESP 17; TEMP 97.7; O2SAT 97
[2017-08-13 16:00] VITALS: BP 168/77; PULSE 72; RESP 16; TEMP 98.2; O2SAT 97
[2017-08-13 20:00] VITALS: BP 155/70; PULSE 70; RESP 20; TEMP 98.1; O2SAT 99
[2017-08-14] VITALS (7 sets, daily range): BP systolic 124–175; BP diastolic 59–94; PULSE 54–104; RESP 17–20; TEMP 97.8–98.2; O2SAT 95–99
[2017-08-14] MEDS: ZOLPIDEM TARTRATE 5 MG TAB PO PRN (01:04)
[2017-08-14] MEDS: PIPERACIL-TAZO 3.375 GM PREMIX 50 ML IV SCH ×4 (01:06→22:04)
[2017-08-14] MEDS: oxyCODONE/ACETAMINOPHEN 5 MG/325 MG TAB PO PRN ×5 (04:53→22:04)
[2017-08-14] MEDS: VANCOMYCIN INJ 1,250 MG in SODIUM CHLOR 0.9% 250 ML INJ 250 ML IV SCH ×2 (04:54→16:06)
[2017-08-14] MEDS: ONDANSETRON HCL 4 MG/2 ML VIAL IV PUSH PRN ×3 (08:12→22:09)
--- NOTE | 2017-08-14 11:08 | HHI.PR ---
Subjective Remarks in no acute distress. pain is better. no fever. Objective Vitals Vital Signs Date Time Temp Pulse Resp B/P (MAP) Pulse Ox O2 Delivery O2 Flow Rate FiO2 08/14/17 08:00 98.0 104 20 156/77 (103) 95 08/14/17 00:00 97.8 77 20 124/59 (80) 97 08/13/17 20:00 98.1 70 20 155/70 (98) 99 08/13/17 16:00 98.2 72 16 168/77 (107) 97 08/13/17 12:00 97.7 61 17 165/78 (107) 97 I/O 08/13/17 08/13/17 08/13/17 08/14/17 08/14/17 08/14/17 07:00 15:00 23:00 07:00 15:00 23:00 Intake Total 50 ml 50 ml 762.5 ml 480 ml Balance 50 ml 50 ml 762.5 ml 480 ml Intake Oral 400 ml 480 ml IV Total 50 ml 50 ml 362.5 ml # Voids 5 2 # Bowel Movements 0 0 Result Diagram: 08/13/17 0748 08/13/17 0748 Imaging Last Impressions Chest X-Ray 08/11/17 0728 Signed Impressions: Service Date/Time: July 07:41 - CONCLUSION: No acute disease. Rock Aaron MD Neck CT 08/11/17 0000 Signed Impressions: Service Date/Time: July 10:43 - CONCLUSION: Superficial cellulitic and deep soft tissue process in the left neck which is presumably inflammatory as described in detail above. Raf Shi MD Objective Remarks GENERAL: This is a well-nourished, well-developed patient, in no apparent distress. Neck; left neck abscess CARDIOVASCULAR: Regular rate and regular rhythm without murmurs, gallops, or rubs. RESPIRATORY: Clear to auscultation. Breath sounds equal bilaterally. No wheezes , rales, or rhonchi. GASTROINTESTINAL: Abdomen soft, non-tender, nondistended. Normal, active bowel sounds MUSCULOSKELETAL: Extremities without clubbing, cyanosis, or edema. NEURO: Alert & Oriented x4 to person, place, time, situation. Moves all ext x4 Procedures Debridement of abscess of left neck with skin, subcutaneous tissue and fascia. Medications and IVs Inpatient Medications Acetaminophen (Tylenol) 650 mg Q4H PRN PO FEVER/ PAIN 1-5; Start 08/11/17 at 12 :15 Acetaminophen/ Hydrocodone Bitart ([place] 5-325 Mg) 1 tab Q4H PRN PO PAIN 6-10 Last administered on 08/12/17at 10:30; Start 08/11/17 at 12:15; Stop 08/12/17 at 15:41; Status DC Lactated Ringer's 1,000 ml @ 30 mls/hr Q24H PRN IV SEE LABEL COMMENTS; Start at 22:15; Stop 08/14/17 at 22:14 Miscellaneous Information ALL NURSING DEPARTME... UNSCH PRN .XX SEE LABEL COMMENTS; Start 08/12/17 at 13:28; Stop 08/13/17 at 13:27; Status DC Ondansetron HCl (Zofran Inj) 4 mg Q6HR PRN IV PUSH NAUSEA Last administered on 08/14/17at 08:12; Start 08/13/17 at 08:30 Oxycodone/ Acetaminophen (Percocet 5-325 Mg) 1 tab Q4H PRN PO PAIN SCALE 6-10 Last administered on 08/14/17at 09:03; Start 08/12/17 at 15:45 Pharmacy Profile Note 0 ml @ 0 mls/hr UNSCH OTHER ; Start 08/11/17 at 12:15 Piperacillin Sod/ Tazobactam Sod 50 ml @ 100 mls/hr Q6H IV Last administered on 08/14/17at 08:12; Start 08/11/17 at 14:00 Sodium Chloride 1,000 ml @ 999 mls/hr BOLUS ONCE IV Last administered on 08/11at 08:12; Start 08/11/17 at 07:30; Stop 08/11/17 at 08:30; Status DC Vancomycin HCl 1000 mg/Sodium Chloride 250 ml @ 250 mls/hr ONCE STAT IV Last administered on 08/11/17at 09:16; Start 08/11/17 at 07:35; Stop 08/11/17 at 08:34 ; Status DC Vancomycin HCl 1250 mg/Sodium Chloride 262.5 ml @ 250 mls/hr Q12H IV Last administered on 08/14/17at 04:54; Start 08/11/17 at 18:00 Zolpidem Tartrate (Ambien) 5 mg HS PRN PO INSOMNIA Last administered on at 01:04; Start 08/12/17 at 10:00 A/P Problem List: (1) Cellulitis of neck ICD Code: L03.221 - Cellulitis of neck Status: Acute Assessment and Plan A/P - left neck cellulitis/ abscess s/p Debridement of abscess of left neck with skin, subcutaneous tissue and fascia. continue with broad-spectrum IV antibiotics and follow the cultures- continue with pain control. surgery follow-up appreciated. -nausea; improved. -elevated LFT's- f/u as outpatient. Discharge Planning dc home tomorrow if stable. Germaine Cadet MD Aug 14, 2017 11:08
--- NOTE | 2017-08-14 14:43 | HHI.PR ---
cc: Gini Busby MD Subjective Subjective Notes DAILY PROGRESS NOTE FOR SURGICAL ATTENDING, DR. GINI BUSBY Sitting up in bed Has a photo of her recent dressing change showing the wound Objective Vitals/I&O Vital Signs Date Time Temp Pulse Resp B/P (MAP) Pulse Ox O2 Delivery O2 Flow Rate FiO2 08/14/17 12:00 97.9 58 17 144/70 (94) 99 08/12/17 17:53 21 08/12/17 14:00 Room Air Labs Date/Time Source Procedure Growth Status 08/11/17 08:00 Blood Peripheral Aerobic Blood Culture - Preliminary NO GROWTH IN 3 DAYS Resulted 08/11/17 08:00 Blood Peripheral Anaerobic Blood Culture - Preliminary NO GROWTH IN 3 DAYS Resulted 08/11/17 08:13 Urine Catheterized Urine Urine Culture - Final 50-100,000 CFU/ML MIXED GRAM POSITIVE... Complete 08/12/17 12:51 Abscess Neck Fungal Smear - Final NO FUNGAL ELEMENTS SEEN. Resulted 08/12/17 12:51 Abscess Neck Fungal Culture Pending Resulted Radiology Last 48 hours Impressions Chest X-Ray 08/11/17 0728 Signed Impressions: Service Date/Time: July 07:41 - CONCLUSION: No acute disease. Rock Aaron MD Neck CT 08/11/17 0000 Signed Impressions: Service Date/Time: July 10:43 - CONCLUSION: Superficial cellulitic and deep soft tissue process in the left neck which is presumably inflammatory as described in detail above. Raf Shi MD Narrative Exam Healing left sided neck wound wet-to-dry dressings A/P Problem List: (1) Cellulitis and abscess of neck ICD Codes: L03.221 - Cellulitis of neck; L02.11 - Cutaneous abscess of neck Status: Acute (2) Abscess of neck ICD Codes: L02.11 - Cutaneous abscess of neck Status: Acute (3) Abscess ICD Codes: L02.91 - Cutaneous abscess, unspecified Status: Acute (4) IVDU (intravenous drug user) ICD Codes: F19.90 - Other psychoactive substance use, unspecified, uncomplicated Status: Acute (5) Cellulitis of neck ICD Codes: L03.221 - Cellulitis of neck Status: Acute Assessment and Plan 52-year-old female with a left-sided neck abscess that required formal debridement in the operating room. Cultures are pending Wound appears to be healing, it is open Wet-to-dry dressing She's made arrangements for follow-up as an outpatient with a friend who can help her do dressing changes Cultures pending okay to discharge one of her antibiotic therapy is determined Attending Statement NOTE FOR SURGICAL ATTENDING, DR. GINI BUSYB I attest that I had a [id number] encounter with the patient on the same day, and personally performed and documented my assessment and findings in the medical record. The following services were provided during this hospital visit: Chart data review, vital sign assessments/reviewing monitor data Review of consultations notes if present. Medication orders/review and/or management Ordering and/or reviewing lab tests Ordering and/or interpreting/reviewing x-rays and/or diagnostic studies Care of the patient and discussion of the patient with the care team Documentation time To help prompt me to consider important information that might be impacting today's encounter and assessment, information from prior notes written by myself or my colleagues may have been "brought forward/copy and pasted" into today's note. Gini Busby MD Aug 14, 2017 14:42
[2017-08-15] MEDS: ZOLPIDEM TARTRATE 5 MG TAB PO PRN (01:02)
[2017-08-15] MEDS: PIPERACIL-TAZO 3.375 GM PREMIX 50 ML IV SCH ×2 (01:02→09:44)
[2017-08-15] MEDS: oxyCODONE/ACETAMINOPHEN 5 MG/325 MG TAB PO PRN ×3 (01:47→11:13)
[2017-08-15] MEDS: VANCOMYCIN INJ 1,250 MG in SODIUM CHLOR 0.9% 250 ML INJ 250 ML IV SCH (05:18)
[2017-08-15] MEDS ORDERED: PHARMACY ORDERED LAB ONE ×2 (05:45→17:45)
[2017-08-15] MEDS: ONDANSETRON HCL 4 MG/2 ML VIAL IV PUSH PRN (06:28)
[2017-08-15 08:00] VITALS: BP 145/76; PULSE 74; RESP 18; TEMP 97.7; O2SAT 98
[2017-08-15 08:55] VITALS: O2SAT 98
--- NOTE | 2017-08-15 11:39 | HHI.PR ---
Subjective Remarks in no acute distress. pain is controlled. no fever. Objective Vitals Vital Signs Date Time Temp Pulse Resp B/P (MAP) Pulse Ox O2 Delivery O2 Flow Rate FiO2 08/15/17 08:55 98 21 08/15/17 08:00 97.7 74 18 145/76 (99) 98 08/15/17 03:57 18 08/14/17 23:54 98.2 54 18 143/87 (105) 96 08/14/17 20:00 98.1 60 18 149/80 (103) 97 08/14/17 18:00 99 21 08/14/17 16:00 97.8 58 18 175/94 (121) 96 08/14/17 12:00 97.9 58 17 144/70 (94) 99 I/O 08/14/17 08/14/17 08/14/17 08/15/17 08/15/17 08/15/17 07:00 15:00 23:00 07:00 15:00 23:00 Intake Total 480 ml 50 ml 887.5 ml 480 ml Balance 480 ml 50 ml 887.5 ml 480 ml Intake Oral 480 ml 575 ml 480 ml IV Total 50 ml 312.5 ml # Voids 2 9 2 # Bowel Movements 0 0 0 Result Diagram: 08/13/17 0748 08/13/17 0748 Imaging Last Impressions Chest X-Ray 08/11/17 0728 Signed Impressions: Service Date/Time: July 07:41 - CONCLUSION: No acute disease. Rock Aaron MD Neck CT 08/11/17 0000 Signed Impressions: Service Date/Time: July 10:43 - CONCLUSION: Superficial cellulitic and deep soft tissue process in the left neck which is presumably inflammatory as described in detail above. Raf Shi MD Objective Remarks GENERAL: This is a well-nourished, well-developed patient, in no apparent distress. Neck; left neck abscess CARDIOVASCULAR: Regular rate and regular rhythm without murmurs, gallops, or rubs. RESPIRATORY: Clear to auscultation. Breath sounds equal bilaterally. No wheezes , rales, or rhonchi. GASTROINTESTINAL: Abdomen soft, non-tender, nondistended. Normal, active bowel sounds MUSCULOSKELETAL: Extremities without clubbing, cyanosis, or edema. NEURO: Alert & Oriented x4 to person, place, time, situation. Moves all ext x4 Procedures Debridement of abscess of left neck with skin, subcutaneous tissue and fascia. Medications and IVs Inpatient Medications Acetaminophen (Tylenol) 650 mg Q4H PRN PO FEVER/ PAIN 1-5; Start 08/11/17 at 12 :15 Acetaminophen/ Hydrocodone Bitart ([place] 5-325 Mg) 1 tab Q4H PRN PO PAIN 6-10 Last administered on 08/12/17at 10:30; Start 08/11/17 at 12:15; Stop 08/12/17 at 15:41; Status DC Lactated Ringer's 1,000 ml @ 30 mls/hr Q24H PRN IV SEE LABEL COMMENTS; Start at 22:15; Stop 08/14/17 at 22:14; Status DC Miscellaneous Information SPECIFIC LAB TO BE STEFANY... ONCE ONCE .XX ; Start at 17:45; Stop 08/15/17 at 17:46 Ondansetron HCl (Zofran Inj) 4 mg Q6HR PRN IV PUSH NAUSEA Last administered on 08/15/17at 06:28; Start 08/13/17 at 08:30 Oxycodone/ Acetaminophen (Percocet 5-325 Mg) 1 tab Q4H PRN PO PAIN SCALE 6-10 Last administered on 08/15/17at 11:13; Start 08/12/17 at 15:45 Pharmacy Profile Note 0 ml @ 0 mls/hr UNSCH OTHER ; Start 08/11/17 at 12:15 Piperacillin Sod/ Tazobactam Sod 50 ml @ 100 mls/hr Q6H IV Last administered on 08/15/17at 09:44; Start 08/11/17 at 14:00 Sodium Chloride 1,000 ml @ 999 mls/hr BOLUS ONCE IV Last administered on 08/11at 08:12; Start 08/11/17 at 07:30; Stop 08/11/17 at 08:30; Status DC Vancomycin HCl 1000 mg/Sodium Chloride 250 ml @ 250 mls/hr ONCE STAT IV Last administered on 08/11/17at 09:16; Start 08/11/17 at 07:35; Stop 08/11/17 at 08:34 ; Status DC Vancomycin HCl 1250 mg/Sodium Chloride 262.5 ml @ 250 mls/hr Q12H IV Last administered on 08/15/17at 05:18; Start 08/11/17 at 18:00 Zolpidem Tartrate (Ambien) 5 mg HS PRN PO INSOMNIA Last administered on at 01:02; Start 08/12/17 at 10:00 A/P Problem List: (1) Cellulitis of neck ICD Code: L03.221 - Cellulitis of neck Status: Acute Assessment and Plan A/P - left neck cellulitis/ abscess s/p Debridement of abscess of left neck with skin, subcutaneous tissue and fascia. blood cultures negative and wound culture with normal skin cedric will switch to po antibiotics. surgery follow-up appreciated; cleared for discharge. -nausea; improved. -elevated LFT's- f/u as outpatient. Discharge Planning dc home today. f/u; pcp and general surgery. see med list. case management to assist with home meds/ follow-ups. d/w the patient, RN and case management. Germaine Cadet MD Aug 15, 2017 11:39
[2017-08-15] MEDS ORDERED: ZOFR4TAB PO (11:40)
[2017-08-15] MEDS ORDERED: CEPH-460 PO (11:40)
[2017-08-15] MEDS ORDERED: BACT800T5 PO (11:40)
--- NOTE | 2017-08-15 11:42 | HHI.DS ---
Discharge Summary Admission Date Aug 11, 2017 at 11:59 Discharge Date: Aug 15, 2017 Admitting Diagnosis Left neck cellulitis (1) Cellulitis of neck ICD Code: L03.221 - Cellulitis of neck Diagnosis: Principal Status: Acute Procedures Debridement of abscess of left neck with skin, subcutaneous tissue and fascia. Brief History - From Admission patient is a 52 y/o female- with history of IVDA, was recently admitted and treated for left neck infection, presented back to ER with worsening pain, swelling and redness of the left neck. last admission she was evaluated by ENT and discharged with po Clindamycin although she says that she didn't finish the course of antibiotic. she says that two days ago she started to have fever and chills. and then she noticed the left neck looked more swollen and red. the area is more painful. this made her to come back to ER. she says that the last time that she had an IV drug injection was about a month ago. CBC/BMP: 08/13/17 0748 08/13/17 0748 Significant Findings Laboratory Tests Test 08/13/17 05:45 08/13/17 07:48 Vancomycin Level Trough 11.4 MCG/ML (5.0-10.0) Red Blood Count 3.88 MIL/MM3 (4.00-5.30) Hemoglobin 11.4 GM/DL (11.6-15.3) Monocytes (%) (Auto) 8.3 % (0.0-8.0) Aspartate Amino Transf (AST/SGOT) 44 U/L (15-37) Alanine Aminotransferase (ALT/SGPT) 70 U/L (10-53) Chloride Level 109 MEQ/L (98-107) Estimat Glomerular Filtration Rate 69 ML/MIN (>89) Imaging Last Impressions Chest X-Ray 08/11/17 0728 Signed Impressions: Service Date/Time: July 07:41 - CONCLUSION: No acute disease. Rock Aaron MD Neck CT 08/11/17 0000 Signed Impressions: Service Date/Time: July 10:43 - CONCLUSION: Superficial cellulitic and deep soft tissue process in the left neck which is presumably inflammatory as described in detail above. Raf Shi MD PE at Discharge GENERAL: This is a well-nourished, well-developed patient, in no apparent distress. Neck; left neck abscess CARDIOVASCULAR: Regular rate and regular rhythm without murmurs, gallops, or rubs. RESPIRATORY: Clear to auscultation. Breath sounds equal bilaterally. No wheezes , rales, or rhonchi. GASTROINTESTINAL: Abdomen soft, non-tender, nondistended. Normal, active bowel sounds MUSCULOSKELETAL: Extremities without clubbing, cyanosis, or edema. NEURO: Alert & Oriented x4 to person, place, time, situation. Moves all ext x4 Hospital Course - left neck cellulitis/ abscess s/p Debridement of abscess of left neck with skin, subcutaneous tissue and fascia. blood cultures negative and wound culture with normal skin cedric will switch to po antibiotics. surgery follow-up appreciated; cleared for discharge. -nausea; improved. Pt Condition on Discharge: Good Discharge Disposition: Discharge Home Discharge Time: <= 30 minutes Discharge Instructions DIET: Follow Instructions for: As Tolerated, No Restrictions Activities you can perform: Regular-No Restrictions Germaine Cadet MD Aug 15, 2017 11:42
[2017-08-15] MEDS ORDERED: OXYC1TAB63 PO (11:44)
== END 2017-08-15 14:04 | disposition home or self-care (01) | DRG 572 ==
LOC: NEPE 03:49 → NEDA 11:59 → N07A 14:32
PROVIDERS: ADMIT Internal Medicine; ATTEND Internal Medicine
PROC: 0JB50ZZ Excision of Left Neck Subcutaneous Tissue and Fascia, Open Approach (ICD-10-PCS; principal; 2017-08-12 12:15)
DX: L02.11 Cutaneous abscess of neck (principal); F17.210 Nicotine dependence, cigarettes, uncomplicated; L03.221 Cellulitis of neck; F19.10 Other psychoactive substance abuse, uncomplicated; Z98.82 Breast implant status
CPT/HCPCS: 70491; 71045; 80053; 80202; 80307; 81001; 83605; 83735; 85025; 85610; 85730; 86403; 87015; 87040; 87070; 87086; 87102; 87116; 87205; 87206; 88304; 88305; 93005; 96365; 96366; 96368; J0131; J1100; J1170; J2250; J2405; J2543; J2710; J3010; J3370; J7030; J7050; Q9967

== ENCOUNTER 2017-10-03 10:55 | Emergency (ER) | payer SELFPAY ==
[~2017-10-03] VITALS: Ht 176.5 cm; Wt 62.0 kg
[~2017-10-03 10:55] MED LIST changes: +CEPH-460 PO; -CLIN150C14 PO; +OXYC1TAB63 PO; +ZOFR4TAB PO
[2017-10-03 11:10] VITALS: BP 190/95; PULSE 83; RESP 18; TEMP 99.2; O2SAT 97
[2017-10-03] MEDS ORDERED: SODIUM CHLOR 0.9% 1000 ML INJ 1,000 ML IV ONE (11:22)
[2017-10-03] MEDS ORDERED: ONDANSETRON HCL 4 MG/2 ML VIAL IV PUSH ONE (11:30)
[2017-10-03] MEDS ORDERED: SODIUM CHLORIDE 0.9% FLUSH 10 ML FLUSH IVF PRN (11:30)
--- NOTE | 2017-10-03 11:33 | PD ---
HPI Chief Complaint: Skin Problem Time Seen by Provider: 11:17 Travel History International Travel<30 days: No Contact w/Intl Traveler<30days: No Traveled to known affect area: No History of Present Illness HPI 52-year-old female presents to the emergency department for evaluation of a previous abscess to her left neck. Patient was admitted in May and then again in July for this abscess. Dr. Maldonado did incision and drainage. Patient states that she noticed some swelling so she called Dr. Maldonado who instructed her to come the emergency department. She reports some neck soreness. Current pain is 5/10, aching, without radiation. She also states she has been vomiting for the past week and a half. She denies vomiting today, states she vomited 5 times yesterday. She denies any chest pain shortness breath. No abdominal pain. No diarrhea or constipation. She denies reporting a previous tubal ligation. Moderate severity. PFSH Past Medical History Arthritis: Yes Blood Disorders: No Anxiety: Yes Depression: Yes Cancer: No Cardiovascular Problems: No Diminished Hearing: No Endocrine: No Genitourinary: No Musculoskeletal: No Neurologic: No Psychiatric: No Reproductive: No Respiratory: No Migraines: Yes Tubal Ligation: Yes Past Surgical History Gynecologic Surgery: Yes (tubal ligation) Neurologic Surgery: Yes (Disectomy and laminectomy X3) Other Surgery: Yes (BREAST AUGMENTATION) Social History Alcohol Use: Yes (daily) Tobacco Use: Yes (a half a pack per day) Substance Use: Yes (nothing since Jun) Allergies-Medications (Allergen,Severity, Reaction): Coded Allergies: No Known Allergies (Unverified Allergy, Unknown, 08/11/17) Reported Meds & Prescriptions Reported Meds & Active Scripts Active Oxycodone-Acetaminophen 5-325 (Oxycodone HCl/Acetaminophen) 5 Mg-325 Mg Tablet 1 Tab PO Q6HR PRN Zofran (Ondansetron HCl) 4 Mg Tab 4 Mg PO Q8HR PRN Bactrim DS (Sulfamethoxazole-Trimethoprim) 800-160 Mg Tab 1 Tab PO BID 7 Days Keflex (Cephalexin) 500 Mg Cap 500 Mg PO Q6H 7 Days Review of Systems Except as stated in HPI: all other systems reviewed are Neg Physical Exam Narrative GENERAL: Well-nourished, well-developed female patient, ambulatory. Afebrile. SKIN: Focused skin assessment warm/dry. Patient has scar to the left neck. There is no erythema. No fluctuance. No induration. No evidence of cellulitis or abscess. HEAD: Normocephalic. Atraumatic EYES: No scleral icterus. No injection or drainage. NECK: Supple, trachea midline. No JVD or lymphadenopathy. CARDIOVASCULAR: Regular rate and rhythm without murmurs, gallops, or rubs. RESPIRATORY: Breath sounds equal bilaterally. No accessory muscle use. Lung sounds are clear to auscultation GASTROINTESTINAL: Abdomen soft, non-tender, nondistended. MUSCULOSKELETAL: No cyanosis, or edema. BACK: Nontender without obvious deformity. No CVA tenderness. Data Data Last Documented VS Vital Signs Date Time Temp Pulse Resp B/P (MAP) Pulse Ox O2 Delivery O2 Flow Rate FiO2 10/03/17 12:34 72 18 173/86 (115) 98 Room Air 10/03/17 11:10 99.2 Orders Orders Complete Blood Count With Diff (10/03/17 11:22) Comprehensive Metabolic Panel (10/03/17 11:22) Urinalysis - C+S If Indicated (10/03/17 11:22) Lipase (10/03/17 11:22) Iv Access Insert/Monitor (10/03/17 11:22) Ecg Monitoring (10/03/17 11:22) Oximetry (10/03/17 11:22) Ondansetron Inj (Zofran Inj) (10/03/17 11:30) Sodium Chlor 0.9% 1000 Ml Inj (Ns 1000 M (10/03/17 11:22) Sodium Chloride 0.9% Flush (Ns Flush) (10/03/17 11:30) Ed Urine Pregnancytest Poc (10/03/17 11:22) Urine Culture (10/03/17 11:48) Ondansetron Odt (Zofran Odt) (10/03/17 12:45) Labs Laboratory Tests Test 10/03/17 11:48 White Blood Count 6.7 TH/MM3 Red Blood Count 4.10 MIL/MM3 Hemoglobin 12.0 GM/DL Hematocrit 36.2 % Mean Corpuscular Volume 88.4 FL Mean Corpuscular Hemoglobin 29.3 PG Mean Corpuscular Hemoglobin Concent 33.2 % Red Cell Distribution Width 16.5 % Platelet Count 229 TH/MM3 Mean Platelet Volume 8.8 FL Neutrophils (%) (Auto) 68.0 % Lymphocytes (%) (Auto) 21.2 % Monocytes (%) (Auto) 8.8 % Eosinophils (%) (Auto) 1.5 % Basophils (%) (Auto) 0.5 % Neutrophils # (Auto) 4.5 TH/MM3 Lymphocytes # (Auto) 1.4 TH/MM3 Monocytes # (Auto) 0.6 TH/MM3 Eosinophils # (Auto) 0.1 TH/MM3 Basophils # (Auto) 0.0 TH/MM3 CBC Comment DIFF FINAL Differential Comment Urine Color YELLOW Urine Turbidity CLOUDY Urine pH 7.5 Urine Specific [place] 1.019 Urine Protein NEG mg/dL Urine Glucose (UA) NEG mg/dL Urine Ketones NEG mg/dL Urine Occult Blood NEG Urine Nitrite NEG Urine Bilirubin NEG Urine Urobilinogen LESS THAN 2.0 MG/DL Urine Leukocyte Esterase NEG Urine RBC 1 /hpf Urine WBC 1 /hpf Urine Squamous Epithelial Cells 30 /hpf Urine Amorphous Sediment RARE Urine Bacteria MOD /hpf Urine Mucus FEW /lpf Microscopic Urinalysis Comment CULTURE INDICATED Blood Urea Nitrogen 18 MG/DL Creatinine 0.91 MG/DL Random Glucose 95 MG/DL Total Protein 7.6 GM/DL Albumin 4.0 GM/DL Calcium Level 9.1 MG/DL Alkaline Phosphatase 77 U/L Aspartate Amino Transf (AST/SGOT) 32 U/L Alanine Aminotransferase (ALT/SGPT) 33 U/L Total Bilirubin 0.4 MG/DL Sodium Level 140 MEQ/L Potassium Level 3.9 MEQ/L Chloride Level 106 MEQ/L Carbon Dioxide Level 24.9 MEQ/L Anion Gap 9 MEQ/L Estimat Glomerular Filtration Rate 65 ML/MIN Lipase 203 U/L [facility] Medical Decision Making Medical Screen Exam Complete: Yes Emergency Medical Condition: Yes Medical Record Reviewed: Yes Differential Diagnosis Cellulitis versus abscess versus wound eval versus electrode abnormality versus dehydration versus UTI Narrative Course 52-year-old female presents to the emergency department for evaluation of previous abscess to her left neck. She states that she has been having pain and swelling. However, on exam, there is no evidence of cellulitis or abscess. She has no induration or fluctuance. No erythema. It does appear well. Scar tissue noted. There is no tenderness to palpation. She also reports vomiting for the past week and half. She has no other symptoms or complaints. IV is established. CBC, CMP, lipase, UA, urine test are ordered and pending. Patient was unable to get IV access. Her labs appear well without evidence of dehydration. She is given Zofran 4 mg ODT. CBC is unremarkable. CMP is unremarkable. Lipase is 203. UA shows moderate bacteria, no nitrite or leukocyte esterase, 1 WBC. This specimen is contaminated with 30 squamous epithelial cells. UPT is negative. Patient was discharged with a prescription for Zofran for nausea and vomiting. My attending physician, Dr. Erickson, is aware of plan and findings and agrees with plan. The patient was discharged in stable condition with instructions, including return instructions and follow up instructions. Diagnosis Primary Impression: Vomiting Qualified Codes: R11.10 - Vomiting, unspecified Referrals: Primary Care Physician call for appointment Patient Instructions: Acute Nausea and Vomiting (ED), General Instructions Additional Instructions: Take Zofran as directed as needed for nausea/vomiting. Follow up with your primary care physician. Return to the emergency department for any acute, worsening of symptoms. Med/Other Pt SpecificInfo: Prescription(s) given Scripts Ondansetron Odt (Ondansetron Odt) 4 Mg Tab 4 MG SL Q6HR Y for Nausea/Vomiting, #12 TAB 0 Refills Prov: Autumn Becerra 10/03/17 Disposition: 01 DISCHARGE HOME Condition: Stable Autumn Becerra October 03, 2017 11:33
[2017-10-03 11:56] LABS: AUTOMATED NEUTROPHIL # 4.5 TH/MM3 (1.8-7.7); BASOPHIL % 0.5 % (0.0-2.0); EOSINOPHIL # 0.1 TH/MM3 (0-0.4); EOSINOPHIL % 1.5 % (0.0-4.0); HEMATOCRIT 36.2 % (35.0-46.0); LYMPH % 21.2 % (9.0-44.0); LYMPHOCYTE # 1.4 TH/MM3 (1.0-4.8); MEAN CELL VOLUME 88.4 FL (80.0-100.0); MEAN CORPUSCULAR HEMOGLOBIN 29.3 PG (27.0-34.0); MEAN CORPUSCULAR HGB CONC 33.2 % (32.0-36.0); MEAN PLATELET VOLUME 8.8 FL (7.0-11.0); MONO % 8.8 % (0.0-8.0); MONOCYTE # 0.6 TH/MM3 (0-0.9); PLATELET COUNT 229 TH/MM3 (150-450); RED CELL DISTRIBUTION WIDTH 16.5 % (11.6-17.2); WHITE BLOOD COUNT 6.7 TH/MM3 (4.0-11.0)
[2017-10-03 12:15] LABS: ALT (GPT) 33 U/L (10-53); AMORPHOUS SEDIMENT, URINE RARE; BACTERIA, URINE MOD /hpf; BILIRUBIN, URINE NEG (NEG); BLOOD, URINE NEG (NEG); GLUCOSE,URINE NEG (NEG); KETONE, URINE NEG (NEG); MUCUS URINE FEW /lpf (OCC); NITRITE,URINE NEG (NEG); PH, URINE 7.5 (5.0-8.5); SQUAMOUS EPITHELIAL CELL URINE 30 /hpf (0-5); URINE COLOR YELLOW (YELLW/STRAW); URINE LEUKOCYTE ESTERASE NEG (NEG)
[2017-10-03 12:17] LABS: ALKALINE PHOSPHATASE 77 U/L (45-117); TOTAL BILIRUBIN ADULT 0.4 MG/DL (0.2-1.0); TOTAL PROTEIN 7.6 GM/DL (6.4-8.2)
[2017-10-03 12:20] LABS: AST (GOT) 32 U/L (15-37); BICARBONATE 24.9 MEQ/L (21.0-32.0); BLOOD UREA NITROGEN 18 MG/DL (7-18); CALCIUM 9.1 MG/DL (8.5-10.1); CHLORIDE 106 MEQ/L (98-107); CREATININE 0.91 MG/DL (0.50-1.00); GLOMERULAR FILTRATION RATE 65 ML/MIN (>89); GLUCOSE,RANDOM 95 MG/DL (74-106); SODIUM (NA) 140 MEQ/L (136-145)
[2017-10-03 12:34] VITALS: BP 173/86; PULSE 72; RESP 18; O2SAT 98
--- NOTE | 2017-10-03 12:38 | PD ---
Data Data Last Documented VS Vital Signs Date Time Temp Pulse Resp B/P (MAP) Pulse Ox O2 Delivery O2 Flow Rate FiO2 10/03/17 12:34 72 18 173/86 (115) 98 Room Air 10/03/17 11:10 99.2 Orders Orders Complete Blood Count With Diff (10/03/17 11:22) Comprehensive Metabolic Panel (10/03/17 11:22) Urinalysis - C+S If Indicated (10/03/17 11:22) Lipase (10/03/17 11:22) Iv Access Insert/Monitor (10/03/17 11:22) Ecg Monitoring (10/03/17 11:22) Oximetry (10/03/17 11:22) Ondansetron Inj (Zofran Inj) (10/03/17 11:30) Sodium Chlor 0.9% 1000 Ml Inj (Ns 1000 M (10/03/17 11:22) Sodium Chloride 0.9% Flush (Ns Flush) (10/03/17 11:30) Ed Urine Pregnancytest Poc (10/03/17 11:22) Urine Culture (10/03/17 11:48) Ondansetron Odt (Zofran Odt) (10/03/17 12:45) Labs Laboratory Tests Test 10/03/17 11:48 White Blood Count 6.7 TH/MM3 Red Blood Count 4.10 MIL/MM3 Hemoglobin 12.0 GM/DL Hematocrit 36.2 % Mean Corpuscular Volume 88.4 FL Mean Corpuscular Hemoglobin 29.3 PG Mean Corpuscular Hemoglobin Concent 33.2 % Red Cell Distribution Width 16.5 % Platelet Count 229 TH/MM3 Mean Platelet Volume 8.8 FL Neutrophils (%) (Auto) 68.0 % Lymphocytes (%) (Auto) 21.2 % Monocytes (%) (Auto) 8.8 % Eosinophils (%) (Auto) 1.5 % Basophils (%) (Auto) 0.5 % Neutrophils # (Auto) 4.5 TH/MM3 Lymphocytes # (Auto) 1.4 TH/MM3 Monocytes # (Auto) 0.6 TH/MM3 Eosinophils # (Auto) 0.1 TH/MM3 Basophils # (Auto) 0.0 TH/MM3 CBC Comment DIFF FINAL Differential Comment Urine Color YELLOW Urine Turbidity CLOUDY Urine pH 7.5 Urine Specific [place] 1.019 Urine Protein NEG mg/dL Urine Glucose (UA) NEG mg/dL Urine Ketones NEG mg/dL Urine Occult Blood NEG Urine Nitrite NEG Urine Bilirubin NEG Urine Urobilinogen LESS THAN 2.0 MG/DL Urine Leukocyte Esterase NEG Urine RBC 1 /hpf Urine WBC 1 /hpf Urine Squamous Epithelial Cells 30 /hpf Urine Amorphous Sediment RARE Urine Bacteria MOD /hpf Urine Mucus FEW /lpf Microscopic Urinalysis Comment CULTURE INDICATED Blood Urea Nitrogen 18 MG/DL Creatinine 0.91 MG/DL Random Glucose 95 MG/DL Total Protein 7.6 GM/DL Albumin 4.0 GM/DL Calcium Level 9.1 MG/DL Alkaline Phosphatase 77 U/L Aspartate Amino Transf (AST/SGOT) 32 U/L Alanine Aminotransferase (ALT/SGPT) 33 U/L Total Bilirubin 0.4 MG/DL Sodium Level 140 MEQ/L Potassium Level 3.9 MEQ/L Chloride Level 106 MEQ/L Carbon Dioxide Level 24.9 MEQ/L Anion Gap 9 MEQ/L Estimat Glomerular Filtration Rate 65 ML/MIN Lipase 203 U/L MDM Supervised Visit with GEETA: Yes Narrative Course I, Dr. Erickson, have reviewed the advance practice practitioner's documentation and am in agreement, met with the patient face to face, made the diagnosis, and the medical decision making was done by me. *My assessment and Findings: I examined her neck. There is no clinical sign of infection. There is a ridge of scar tissue at the incision site but otherwise no tenderness or redness or warmth or fluctuance. Labs are normal. Last IV drug use was 2 months ago. She says she has quit for good Vinayak Erickson MD October 03, 2017 12:38
[2017-10-03] MEDS ORDERED: ONDA4TAB7 SL (12:40)
[2017-10-03] MEDS ORDERED: ONDANSETRON ODT 4 MG TAB PO ONE (12:45)
== END 2017-10-03 13:18 | disposition home or self-care (01) ==
LOC: NEPC 10:55
DX: R11.10 Vomiting, unspecified (principal); R82.71 Bacteriuria
CPT/HCPCS: 80053; 81001; 83690; 84703; 85025; 87086; 99283